=== PATIENT | female | born 1985 | race Caucasian/White ===

== ENCOUNTER 2016-08-15 20:24 | Outpatient (CLI) | payer OTHER ==
[2016-08-15 21:17] LABS: APPEARANCE,URINE CLEAR; BILIRUBIN,URINE NEGATIVE (NEGATIVE); GLUCOSE, URINE NEGATIVE (NEGATIVE); KETONES,URINE 20 mg/dL (NEGATIVE); LEUKOCYTE ESTERASE,URINE NEGATIVE (NEGATIVE); NITRITE,URINE NEGATIVE (NEGATIVE); PROTEIN,URINE NEGATIVE (NEGATIVE); URINE SPECIFIC GRAVITY 1.009; UROBILINOGEN,URINE NEGATIVE mg/dL (<2.0)
[2016-08-15 21:29] LABS: URINE BARBITURATES SCREEN NEGATIVE; URINE METHADONE SCREEN NEGATIVE; URINE OPIATES LOW NEGATIVE; URINE PHENCYCLIDINE SCREEN NEGATIVE
[2016-08-15] MEDS ORDERED: HYDROXYZINE PAMOATE 50 MG CAPSULE PO ONE (22:30)
[2016-08-15] MEDS ORDERED: HYDROXYZINE PAMOATE 50 MG CAPSULE ONE (22:43)
--- NOTE | 2016-08-23 07:27 | Non Stress Test Report ---
Non Stress Test Datetime Report Generated by CPN: 08/23/2016 07:27 DEMOGRAPHIC Test Number: 1 EGA NST: 32.2 INDICATION Indication for Study: Ordered by Provider MONITORING Monitor Explained: Monitor Explained; Test Explained; Patient Verbalized Understanding Time on Monitor: 08/15/2016 20:41 Time off Monitor: 08/15/2016 21:33 NST Duration: 52 NST INTERVENTIONS NST Interventions: PO Hydration; Reposition Patient Physician Notified NST: Dr Joaquin BABY A: [id number] BABY A Movement : Present Contraction Frequency : Irregular FHR Baseline : 130 Accelerations : 15X15 Decelerations : None Variability : Moderate 6-25bpm NST Review: Meets Criteria for Reactive NST NST Review and Verified By : SYDNEY Alvarez Results: Reactive NST REPORT Report Trigger: Send Report
== END 2016-08-15 22:48 | disposition home or self-care (01) ==
LOC: LC 20:24
PROVIDERS: ATTEND Obstetrics & Gynecology
DX: Z34.83 Encounter for supervision of other normal pregnancy, third trimester (principal); Z3A.36 36 weeks gestation of pregnancy
CPT/HCPCS: 59025; 80307; 81001

== ENCOUNTER 2016-09-06 05:51 | Outpatient (CLI) | payer OTHER ==
[2016-09-06 06:40] LABS: APPEARANCE,URINE CLEAR; BILIRUBIN,URINE NEGATIVE (NEGATIVE); GLUCOSE, URINE NEGATIVE (NEGATIVE); KETONES,URINE NEGATIVE (NEGATIVE); LEUKOCYTE ESTERASE,URINE NEGATIVE (NEGATIVE); NITRITE,URINE NEGATIVE (NEGATIVE); PROTEIN,URINE NEGATIVE (NEGATIVE); URINE SPECIFIC GRAVITY 1.002; UROBILINOGEN,URINE NEGATIVE mg/dL (<2.0)
[2016-09-06] MEDS ORDERED: HYDROXYZINE PAMOATE 50 MG CAPSULE ONE (06:50)
[2016-09-06 07:01] LABS: URINE BARBITURATES SCREEN NEGATIVE; URINE METHADONE SCREEN NEGATIVE; URINE OPIATES LOW NEGATIVE; URINE PHENCYCLIDINE SCREEN NEGATIVE
== END 2016-09-06 06:56 | disposition home or self-care (01) ==
LOC: LC 05:51
PROVIDERS: ATTEND Obstetrics & Gynecology
PROC: 4A1HXCZ Monitoring of Products of Conception, Cardiac Rate, External Approach (ICD-10-PCS; principal; 2016-09-06)
DX: O47.03 False labor before 37 completed weeks of gestation, third trimester (principal); Z3A.35 35 weeks gestation of pregnancy
CPT/HCPCS: 59025; 80307; 81001

== ENCOUNTER 2016-09-24 21:59 | Outpatient (CLI) | payer OTHER ==
[2016-09-24 22:59] LABS: APPEARANCE,URINE CLOUDY; BILIRUBIN,URINE NEGATIVE (NEGATIVE); GLUCOSE, URINE NEGATIVE (NEGATIVE); KETONES,URINE NEGATIVE (NEGATIVE); LEUKOCYTE ESTERASE,URINE LARGE (NEGATIVE); NITRITE,URINE NEGATIVE (NEGATIVE); PROTEIN,URINE NEGATIVE (NEGATIVE); URINE SPECIFIC GRAVITY 1.003; UROBILINOGEN,URINE NEGATIVE mg/dL (<2.0)
[2016-09-24 23:21] LABS: URINE BARBITURATES SCREEN NEGATIVE; URINE METHADONE SCREEN NEGATIVE; URINE OPIATES LOW NEGATIVE; URINE PHENCYCLIDINE SCREEN NEGATIVE
[2016-09-25] MEDS ORDERED: RINGERS SOLUTION,LACTATED 1,000 ML IV PRN
--- NOTE | 2016-09-25 01:22 | Non Stress Test Report ---
Non Stress Test Datetime Report Generated by CPN: 09/25/2016 01:22 DEMOGRAPHIC Test Number: 2 EGA NST: 38.0 EGA NST: 35.3 INDICATION Indication for Study: Ordered by Provider Indication for Study: Ordered by Provider MONITORING Monitor Explained: Monitor Explained; Test Explained; Patient Verbalized Understanding Monitor Explained: Monitor Explained; Test Explained; Patient Verbalized Understanding Time on Monitor: 09/24/2016 23:51 Time on Monitor: 09/06/2016 06:05 Time off Monitor: 09/25/2016 00:50 NST Duration: 59 NST INTERVENTIONS NST Interventions: IV Fluids NST Interventions: PO Hydration; Reposition Patient Physician Notified NST: Dr Hopkins Physician Notified NST: Dr. Nuñez BABY A: [id number] BABY A Movement : Present Movement : Present Contraction Frequency : irritability w/ occasional ctx FHR Baseline : 135 Accelerations : 15X15 Accelerations : 15X15 Decelerations : None Variability : Moderate 6-25bpm Variability : Moderate 6-25bpm NST Review: Meets Criteria for Reactive NST NST Review: Meets Criteria for Reactive NST NST Review and Verified By : SYDNEY Feliz NST Results: Reactive NST Results: Reactive NST REPORT Report Trigger: Send Report
== END 2016-09-25 01:05 | disposition home or self-care (01) ==
LOC: LC 21:59
PROVIDERS: ATTEND Obstetrics & Gynecology
PROC: 4A1HXCZ Monitoring of Products of Conception, Cardiac Rate, External Approach (ICD-10-PCS; principal; 2016-09-24)
DX: O47.1 False labor at or after 37 completed weeks of gestation (principal); Z3A.38 38 weeks gestation of pregnancy
CPT/HCPCS: 59025; 80307; 81005

== ENCOUNTER 2016-09-28 11:19 | Outpatient (CLI) | payer OTHER ==
[2016-09-28 12:27] LABS: APPEARANCE,URINE SLIGHTLY-CLOUDY; BILIRUBIN,URINE NEGATIVE (NEGATIVE); GLUCOSE, URINE NEGATIVE (NEGATIVE); KETONES,URINE NEGATIVE (NEGATIVE); LEUKOCYTE ESTERASE,URINE MODERATE (NEGATIVE); NITRITE,URINE NEGATIVE (NEGATIVE); PROTEIN,URINE NEGATIVE (NEGATIVE); URINE SPECIFIC GRAVITY 1.009; UROBILINOGEN,URINE NEGATIVE mg/dL (<2.0)
[2016-09-28 12:33] LABS: URINE BARBITURATES SCREEN NEGATIVE; URINE METHADONE SCREEN NEGATIVE; URINE OPIATES LOW NEGATIVE; URINE PHENCYCLIDINE SCREEN NEGATIVE
--- NOTE | 2016-09-28 12:53 | Non Stress Test Report ---
Non Stress Test Datetime Report Generated by CPN: 09/28/2016 12:53 DEMOGRAPHIC EGA NST: 38.4 INDICATION Indication for Study: Ordered by Provider MONITORING Monitor Explained: Monitor Explained; Test Explained Time on Monitor: 09/28/2016 11:43 Time off Monitor: 09/28/2016 12:30 NST Duration: 47 NST INTERVENTIONS NST Interventions: PO Hydration Physician Notified NST: DR SUYAPA BABY A: [id number] BABY A Movement : Present Contraction Frequency : 10-15 FHR Baseline : 140 Accelerations : 15X15 Decelerations : None Variability : Moderate 6-25bpm NST Review: Meets Criteria for Reactive NST NST Review and Verified By : Dieter Zamarripa RNC NST Results: Reactive NST REPORT Report Trigger: Send Report
== END 2016-09-28 12:55 | disposition home or self-care (01) ==
LOC: LC 11:19
PROVIDERS: ATTEND Obstetrics & Gynecology
PROC: 4A1HXCZ Monitoring of Products of Conception, Cardiac Rate, External Approach (ICD-10-PCS; principal; 2016-09-28)
DX: O14.93 Unspecified pre-eclampsia, third trimester (principal); Z3A.38 38 weeks gestation of pregnancy
CPT/HCPCS: 59025; 80307; 81001; 87086

== ENCOUNTER 2016-10-05 20:30 | Outpatient (CLI) | payer OTHER ==
[2016-10-05 21:17] LABS: APPEARANCE,URINE CLOUDY; BILIRUBIN,URINE NEGATIVE (NEGATIVE); GLUCOSE, URINE NEGATIVE (NEGATIVE); KETONES,URINE NEGATIVE (NEGATIVE); LEUKOCYTE ESTERASE,URINE SMALL (NEGATIVE); NITRITE,URINE NEGATIVE (NEGATIVE); PROTEIN,URINE 30 mg/dL (NEGATIVE); URINE SPECIFIC GRAVITY 1.013; UROBILINOGEN,URINE NEGATIVE mg/dL (<2.0)
[2016-10-05 21:22] LABS: AMNISURE (ROM) NEGATIVE (NEGATIVE)
[2016-10-05 21:35] LABS: URINE BARBITURATES SCREEN NEGATIVE; URINE METHADONE SCREEN NEGATIVE; URINE OPIATES LOW NEGATIVE; URINE PHENCYCLIDINE SCREEN NEGATIVE
== END 2016-10-05 21:35 | disposition home or self-care (01) ==
LOC: LC 20:30
PROVIDERS: ATTEND Obstetrics & Gynecology
PROC: 4A1HXCZ Monitoring of Products of Conception, Cardiac Rate, External Approach (ICD-10-PCS; principal; 2016-10-05)
DX: O12.03 Gestational edema, third trimester (principal); O47.1 False labor at or after 37 completed weeks of gestation; Z3A.39 39 weeks gestation of pregnancy
CPT/HCPCS: 59025; 80307; 81005; 84112

== ENCOUNTER 2016-10-06 00:04 | Inpatient (IN) | payer OTHER ==
[2016-10-06 01:11] LABS: APPEARANCE,URINE CLEAR; BILIRUBIN,URINE NEGATIVE (NEGATIVE); GLUCOSE, URINE NEGATIVE (NEGATIVE); KETONES,URINE NEGATIVE (NEGATIVE); LEUKOCYTE ESTERASE,URINE NEGATIVE (NEGATIVE); NITRITE,URINE NEGATIVE (NEGATIVE); PROTEIN,URINE NEGATIVE (NEGATIVE); URINE SPECIFIC GRAVITY 1.009; UROBILINOGEN,URINE NEGATIVE mg/dL (<2.0)
[2016-10-06] MEDS ORDERED: RINGERS SOLUTION,LACTATED 1,000 ML IV ONE (01:46)
[2016-10-06] MEDS ORDERED: RINGERS SOLUTION,LACTATED 1,000 ML IV PRN (01:46)
[2016-10-06 01:50] LABS: URINE BARBITURATES SCREEN NEGATIVE; URINE METHADONE SCREEN NEGATIVE; URINE OPIATES LOW NEGATIVE; URINE PHENCYCLIDINE SCREEN NEGATIVE
[2016-10-06] MEDS ORDERED: NALBUPHINE HCL INJ 10 MG/1 ML AMPULE INJ ONE (02:12)
[2016-10-06] MEDS ORDERED: PROMETHAZINE HCL INJ 25 MG/1 ML VIAL IV ONE (02:12)
[2016-10-06 02:13] LABS: HEMATOCRIT 32.2 % (36.0-47.0); HEMOGLOBIN 10.5 g/dL (12.0-15.5); HGB HCT DIFFERENCE -0.7; MEAN CORPUSCULAR HGB CONC 32.6 g/dL (32.0-36.0); MEAN CORPUSCULAR VOLUME 86 fl (80-97); RED BLOOD COUNT 3.76 10^6/uL (3.72-5.28); RED CELL DISTRIBUTION WIDTH 14.7 % (11.5-14.0); WHITE BLOOD COUNT 21.2 10^3/uL (4.0-10.5)
[2016-10-06] MEDS ORDERED: PROMETHAZINE HCL INJ 25 MG/1 ML VIAL ONE (02:16)
[2016-10-06] MEDS ORDERED: NALBUPHINE HCL INJ 10 MG/1 ML AMPULE ONE (02:16)
[2016-10-06 02:34] LABS: BASOPHILS % (MANUAL) 0 % (0-2); EOSINOPHILS % (MANUAL) 0 % (0-6); LYMPHOCYTES % (MANUAL) 15 % (13-45); TOTAL CELLS COUNTED 100
[2016-10-06 02:35] LABS: ANISOCYTOSIS 1+; TOXIC GRANULATION 1+; TOXIC VACUOLATION PRESENT
[2016-10-06 02:36] LABS: POLYCHROMASIA SLIGHT
[2016-10-06] MEDS ORDERED: OXYTOCIN/NORMAL SALINE 20 UNIT/1,000 ML RTUINJ ONE (03:25)
[2016-10-06] MEDS ORDERED: MISOPROSTOL 0.2 MG TABLET ONE (03:25)
[2016-10-06] MEDS ORDERED: LIDOCAINE 1% INJ-PF (10 MG/ML) 30 ML SDV ONE (03:25)
[2016-10-06] MEDS ORDERED: IBUPROFEN 800 MG TABLET ONE (05:14)
[2016-10-06] MEDS ORDERED: BENZOCAINE/MENTHOL AEROSOL SPRAY 56 ML TOP PRN (05:53)
[2016-10-06] MEDS ORDERED: ZOLPIDEM TARTRATE 5 MG TABLET PO PRN (05:53)
[2016-10-06] MEDS ORDERED: DIBUCAINE 1% OINTMENT 28 GM TP PRN (05:53)
[2016-10-06] MEDS ORDERED: MEASLES,MUMPS&RUBELLA VACC/PF 0.5 ML VIAL SUBCUT PRN (05:53)
[2016-10-06] MEDS ORDERED: DIPH/PERTUSS(ACELL)/TETANUS VAC/PF 0.5 ML SYR (>=10YO) IM PRN (05:53)
[2016-10-06] MEDS ORDERED: ACETAMINOPHEN WITH CODEINE #3 TABLET PO PRN (05:53)
--- NOTE | 2016-10-06 06:13 | Admission Physical ---
Datetime Report Generated by CPN: 10/06/2016 06:13 CURRENT ADMISSION Chief Complaint: Uterine Contractions Indication for Induction: Not Applicable Admit Plan: Admit to Unit; Initiate Labor Protocol ALLERGIES Medication Allergies: No Medication Allergies: No Known Allergies (09/28/2016) Medication Allergies: No Known Allergies (09/06/2016) Medication Allergies: No Known Allergies (08/15/2016) Medication Allergies: No Known Allergies (02/24/2016) Medication Allergies: No Known Allergies (10/07/2014) Medication Allergies: No Known Allergies (03/12/2012) Latex: No Latex Allergies Food Allergies: none Environmental Allergies: none OBSTETRICAL HISTORY EDC: 10/08/2016 00:00 : 7 Para: 3 Term: 3 : 0 SAB: 1 IAB: 1 Ectopic: 1 Livin Cesareans: 0 VBACs: 0 Multiple Births: 0 Gestational Diabetes: No Rh Sensitization: No Incompetent Cervix: No ELIAS: No Infertility: No ART Treatment: No Uterine Anomaly: No IUGR: No Hx Previous C/S: No Macrosomia: No Hx Loss/Stillborn: No PIH: No Hx : No Placenta Previa/Abruption: No Depression/PP Depression: Yes PTL/PROM: No Post Hemorrhage: No Current Procedures: Ultrasound; NST Obstetrical History Comments: G1: 2003 SAB G2: 2005 Male 7 lbs 12 ounces G3: 2006 Male 6 lbs 12 ounces G4: 2012 Female 8 lbs 9 ounces, PPD treated with meds G5: 2014 Ectopic/SAB G6: 2015 IAB G7: Current SEE RECORDS Alcohol: No Marijuana : No Cocaine: No Other Illicit Drugs: No Cigarettes: Current Everyday Smoker. [id number] Cigarettes: Current Everyday Smoker. [id number] Cigarette Frequency: 5 - 10 per day Advised to Stop: Yes Cigarette Comments: 1/2 PPD MEDICAL HISTORY Diabetes: No Blood Transfusion: No Pulmonary Disease (Asthma, TB): Yes Breast Disease: No Hypertension: No Sweatband Flanger Surgery: No Heart Disease: No Hosp/Surgery: Yes Autoimmune Disorder: No Anesthetic Complications: No Kidney Disease: No Abnormal Pap Smear: No Neuro/Epilepsy: Yes Psychiatric Disorders: Yes Other Medical Diseases: No Hepatitis/Liver Disease: No Significant Family History: No Varicosities/Phlebitis: No Trauma/Violence : No Thyroid Dysfunction: No Medical History Comments: childbirth, asthma (no resuce inhaler- exercise induced), anxiety, TBI x2 INFECTIOUS HISTORY Gonorrhea: No Genital Herpes: Yes Chlamydia: No Tuberculosis: No Syphilis: No Hepatitis: No HIV/AIDS Exposure: No Rash or Viral Illness: No HPV: 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 PHYSICAL EXAM General: Normal HEENT: Normal Neurologic: Normal Thyroid: Deferred Heart: Normal Lungs: Normal Breast: Deferred Back: Normal Abdomen: Normal Genitourinary Exam: Normal Extremities: Normal DTRs: Normal Pelvic Type: Adequate Vital Signs: Reviewed; Within Normal Limits VAGINAL EXAM Dilatation: 3 Effacement: 70 Station: -2 MEMBRANES Membranes: Intact FETUS A EGA: 39.5 Monitoring: External US FHR- Baseline: 140 Variability: Moderate 6-25bpm Accelerations: 15X15 Decelerations: None FHR Category: Category I PLANS FOR LABOR AND DELIVERY Labor and Delivery: None Pain Management: Epidural Feeding Preference: Breast Benefit of Breast Feed Discussed: Yes Circumcision: Yes INFORMED CONSENT Signature: with User ID: [email or web address]
--- NOTE | 2016-10-06 06:31 | Delivery Summary ---
Del Sum A-C Datetime Report Generated by CPN: 10/06/2016 06:30 DELIVERY PERSONNEL DELIVERY PERSONNEL: [id number] Delivery Doctor:: Jose Bingham DO Labor and Delivery Nurse:: Margot Zhang RNair brake adjuster Nurse:: Adwoa Baldwin RN Art Objects Salesperson/CARE GIVER: Sofi Barber, ST MATERNAL INFORMATION Delivery Anesthesia: None Medications After Delivery: Pitocin Drip 20 Units/1000ml NSS Estimated Blood Loss (ml): 200 Maternal Complications: None Provider Comments: of viable male infant delievered in OA position Placenta delievered spontaneous and intact with 3v cord Fundus firm LABOR SUMMARY EDC: 10/08/2016 00:00 No. Babies in Womb: 1 Attempted: No Labor Anesthesia: IV Sedation LABOR INFORMATION Reason for Induction: Not Applicable Onset of Labor: 10/06/2016 03:03 Complete Dilatation: 10/06/2016 03:57 Oxytocin: N/A Group B Beta Strep: negative Antibiotics # of Doses: 0 Antibiotics Time of Last Dose: N/A Name of Antibiotic Given: N/A Steroids Given: None Reason Steroids Not Administered: Not Applicable MEMBRANES Rupture of Membranes: Membranes did not rupture during pt. stay in Labor and Delivery, pt. is not sure when her membranes ruptured. Amniotic Fluid Color: Clear STAGES OF LABOR Stage 1 hr: 0 Stage 1 min: 54 Stage 2 hr: 0 Stage 2 min: 0 Stage 3 hr: 0 Stage 3 min: 3 Total Time in Labor hr: 0 Total Time in Labor min: 57 VAGINAL DELIVERY Episiotomy: None Laceration Extension: N/A Other Laceration: right labial Laceration Repair: Yes Laceration Repair Note: Right labial laceration repaired with 3-0 chromic in usual fashion with good hemostasis Sponge Count Correct: N/A Sharps Count Correct: Yes CSECTION DELIVERY Primary Indication: N/A Secondary Indication: N/A CSection Incidence: N/A Labor: N/A Elective: N/A CSection Incision: N/A BABY A INFORMATION Infant Delivery Date/Time: 10/06/2016 03:57 Method of Delivery: Vaginal Born in Route : No : N/A Forceps: N/A Vacuum Extraction: N/A Shoulder Dystocia : No PRESENTATION/POSITION BABY A Presentation: Cephalic Cephalic Presentation: Vertex Vertex Position: Left Occipital Anterior Breech Presentation: N/A PLACENTA INFORMATION BABY A Placenta Delivery Time : 10/06/2016 04:00 Placenta Method of Delivery: Spontaneous Placenta Status: Delivered SCORES BABY A Heart Rate 1 min: >100 bpm Resp Effort 1 min: Good Cry Reflex Irritability 1 min: Cough or Sneeze or Pulls Away Muscle Tone 1 min: Active Motion Color 1 min: Body [place], Extremities Blue Resuscitation Effort 1 min: Tactile Stimulation SCORE 1 MIN: 9 Heart Rate 5 min: >100 bpm Resp Effort 5 min: Good Cry Reflex Irritability 5 min: Cough or Sneeze or Pulls Away Muscle Tone 5 min: Active Motion Color 5 min: Body [place], Extremities Blue Resuscitation Effort 5 min: Tactile Stimulation SCORE 5 MIN: 9 INFANT INFORMATION BABY A Gestational Age at Delivery: 39.5 Gestational Status: Full Term- 39- 40.6 Weeks Infant Outcome : Liveborn Condition : Stable Sex: Male IDENTIFICATION BABY A Verification Date/Time: 10/06/2016 04:06 ID Band Number: [id number] Mother's Name Verified: Yes RN Verifying : S. Lattibgirishudeir, RN _ C. [place], RN WEIGHT/LENGTH BABY A Infant Birthweight (gm): 2870 Weight (lb): 6 Infant Weight (oz): 5 Length (in): 19.00 Infant Length (cm): 48.26 CORD INFORMATION BABY A No. Cord Vessels: 3 Nuchal Cord : N/A Cord Blood Taken: Yes-For Storage (Mom's Blood type +) Suction: Mouth; Nose ASSESSMENT BABY A Infant Complications: None Physical Findings at Delivery: Within Normal Limits Skin to Skin: Yes Skin to Skin Time (min): 60 BABY B INFORMATION : N/A SIGNATURES Signature: with User ID: [email or web address]
[2016-10-06] MEDS: IBUPROFEN 800 MG TABLET PO SCH ×3 (06:59→22:07)
[2016-10-06] MEDS: SENNOSIDES/DOCUSATE 8.6-50 MG 1 EACH TABLET PO SCH (09:22)
[2016-10-06] MEDS: DOCUSATE SODIUM 100 MG CAPSULE PO SCH ×2 (09:22→18:07)
[2016-10-06] MEDS: PRENATAL VITAMIN W-O CA NO5/FE FUMARATE/FA CAPSULE PO SCH (09:23)
[2016-10-06] MEDS: FERROUS SULFATE 325 MG TABLET PO SCH ×2 (09:40→18:08)
[2016-10-06] MEDS: ACETAMINOPHEN WITH CODEINE #3 TABLET PO PRN (14:01)
--- NOTE | 2016-10-06 16:26 | PDOC PROGRESS REPORT ---
Subjective-OB Subjective: Post Delivery Day: 31 year old G7 now P4 s/p this am. Denies any needs at this time Physical Exam (OB) Vital Signs: Temp Pulse Resp BP Pulse Ox 98.4 F 71 16 109/46 L 97 10/06/16 07:42 10/06/16 07:42 10/06/16 07:42 10/06/16 07:42 10/06/16 07:42 Intake & Output 10/05/16 10/06/16 10/07/16 06:59 06:59 06:59 Intake Total 350 Balance 350 Weight 74.45 kg - General General Appearance: Appears well In distress: None - Episiotomy/Laceration Site Condition: Well Approximated, Edematous - Lochia Lochia Amount: Small 10-25 ml Lochia Color: Rubra/Red - Abdomen Description: Soft Hernia Present: No Fundal Description: Firm, Midline Fundal Height: u/u - u/2 - Respiratory Respiratory Status: No respiratory distress - Extremities Upper extremity: Normal inspection Lower extremities: Normal inspection - Psychological Associated symptoms: Normal affect, Normal mood Objective-Diagnostic Laboratory: 10/06/16 01:53 10/06/16 10/06/16 10/06/16 00:20 01:53 01:53 WBC 21.2 H RBC 3.76 Hgb 10.5 L Hct 32.2 L MCV 86 MCH 28.0 MCHC 32.6 RDW 14.7 H Plt Count 201 Seg Neutrophils % Not Reportable Lymphocytes % Not Reportable Monocytes % Not Reportable Eosinophils % Not Reportable Basophils % Not Reportable Absolute Neutrophils Not Reportable Absolute Lymphocytes Not Reportable Absolute Monocytes Not Reportable Absolute Eosinophils Not Reportable Absolute Basophils Not Reportable Urine Color YELLOW Urine Appearance CLEAR Urine pH 7.0 Ur Specific [place] 1.009 Urine Protein NEGATIVE Urine Glucose (UA) NEGATIVE Urine Ketones NEGATIVE Urine Blood NEGATIVE Urine Nitrite NEGATIVE Ur Leukocyte Esterase NEGATIVE Blood Type B POSITIVE Antibody Screen NEGATIVE Assessment and Plan(PN) - Assessment and Plan (1) Vaginal delivery Is this a current diagnosis for this admission?: YesPlan: continue stay (2) Acute blood loss anemia Is this a current diagnosis for this admission?: YesPlan: increase dietary iron and po feso4 - Time Spent with Patient Time with patient: 15-25 minutes Medications reviewed and adjusted accordingly: Yes - Disposition Anticipated Discharge: Home Within: within 48 hours
[2016-10-07] MEDS: IBUPROFEN 800 MG TABLET PO SCH ×3 (06:17→21:48)
[2016-10-07 08:21] LABS: HEMATOCRIT 28.5 % (36.0-47.0); HEMOGLOBIN 9.1 g/dL (12.0-15.5); HGB HCT DIFFERENCE -1.2; MEAN CORPUSCULAR HEMOGLOBIN 27.7 pg (27.0-33.4); MEAN CORPUSCULAR HGB CONC 31.9 g/dL (32.0-36.0); MEAN CORPUSCULAR VOLUME 87 fl (80-97); RED BLOOD COUNT 3.27 10^6/uL (3.72-5.28); RED CELL DISTRIBUTION WIDTH 14.6 % (11.5-14.0); WHITE BLOOD COUNT 14.5 10^3/uL (4.0-10.5)
--- NOTE | 2016-10-07 09:58 | PDOC PROGRESS REPORT ---
Subjective-OB Subjective: Post Delivery Day: 1 31 year old. Denies any needs at this time, states lochia is stable, voiding without difficulty, pain well controlled. Physical Exam (OB) Vital Signs: Temp Pulse Resp BP Pulse Ox 97.8 F 79 16 122/75 100 10/07/16 08:50 10/07/16 08:50 10/07/16 08:50 10/07/16 08:50 10/07/16 08:50 Intake & Output 10/06/16 10/07/16 10/08/16 06:59 06:59 06:59 Intake Total 350 Balance 350 Weight 74.45 kg - Lochia Lochia Amount: Scant < 10 ml Lochia Color: Rubra/Red - Abdomen Description: Tender, Soft Hernia Present: No Fundal Description: Firm, Midline Fundal Height: u/u - u/2 Objective-Diagnostic Laboratory: 10/07/16 08:05 10/07/16 08:05 WBC 14.5 H RBC 3.27 L Hgb 9.1 L Hct 28.5 L MCV 87 MCH 27.7 MCHC 31.9 L RDW 14.6 H Plt Count 208 Assessment and Plan(PN) - Assessment and Plan (1) Acute blood loss anemia Is this a current diagnosis for this admission?: YesPlan: ferrous sulfate increase dietary iron (2) Vaginal delivery Is this a current diagnosis for this admission?: YesPlan: routine care - Time Spent with Patient Time with patient: Less than 15 minutes Critical Time spent with patient: Less than 15 minutes Medications reviewed and adjusted accordingly: Yes - Disposition Anticipated Discharge: Home
[2016-10-07] MEDS: FERROUS SULFATE 325 MG TABLET PO SCH ×2 (10:44→17:45)
[2016-10-07] MEDS: PRENATAL VITAMIN W-O CA NO5/FE FUMARATE/FA CAPSULE PO SCH (10:44)
[2016-10-07] MEDS: SENNOSIDES/DOCUSATE 8.6-50 MG 1 EACH TABLET PO SCH (10:44)
[2016-10-07] MEDS: DOCUSATE SODIUM 100 MG CAPSULE PO SCH ×2 (10:44→17:45)
[2016-10-07] MEDS: ACETAMINOPHEN WITH CODEINE #3 TABLET PO PRN (11:14)
[2016-10-08] MEDS: IBUPROFEN 800 MG TABLET PO SCH (06:01)
[2016-10-08 08:45] VITALS: BP 114/63
[2016-10-08] MEDS: FERROUS SULFATE 325 MG TABLET PO SCH (09:22)
[2016-10-08] MEDS: SENNOSIDES/DOCUSATE 8.6-50 MG 1 EACH TABLET PO SCH (09:22)
[2016-10-08] MEDS: PRENATAL VITAMIN W-O CA NO5/FE FUMARATE/FA CAPSULE PO SCH (09:22)
[2016-10-08] MEDS: DOCUSATE SODIUM 100 MG CAPSULE PO SCH (09:22)
--- NOTE | 2016-10-08 09:28 | PDOC DISCHARGE SUMMARY ---
Final Diagnosis Discharge Date: 10/08/16 - Final Diagnosis (1) Acute blood loss anemia Is this a current diagnosis for this admission?: Yes (2) Vaginal delivery Is this a current diagnosis for this admission?: Yes Discharge Data - Discharge Medication Home Medications: Pediatric Multivit Comb No.42 [Flintstones] 2 each PO DAILY 08/15/16 Valacyclovir HCl [Valtrex 500 mg Tablet] 1 tab PO DAILY 09/24/16 Acetaminophen with Codeine [Tylenol #3 Tablet] 2 each PO Q4HP PRN #14 tablet 04/26 Docusate Sodium [Colace 100 mg Capsule] 100 mg PO BID #60 capsule 10/08/16 Ibuprofen [Motrin 800 mg Tablet] 800 mg PO Q8 #60 tablet 10/08/16 Gestational Age: 39.5 Reason(s) for Admission: Onset of Labor Procedures: NST Intrapartum Procedure(s): Spontaneous Vaginal Delivery - Data Baby 1 Male at 1 minute: 9 at 5 minutes: 9 Weight: 2870 kg Home with Mother: Yes Complications: No - Diagnosis Test Laboratory: Temp Pulse Resp BP Pulse Ox 98.1 F 71 16 114/63 99 10/08/16 08:31 10/08/16 08:31 10/08/16 08:31 10/08/16 08:31 10/08/16 08:31 10/06/16 10/06/16 10/07/16 00:20 01:53 08:05 RBC 3.76 3.27 L Hgb 10.5 L 9.1 L Hct 32.2 L 28.5 L Urine Opiates Screen NEGATIVE - Discharge information/Instructions Discharge Activity: Activity As Tolerated, Pelvic Rest, No tub bath Discharge Diet: Regular Disposition: HOME, SELF-CARE Follow up with: [facility] in: 4, Weeks
== END 2016-10-08 13:55 | disposition home or self-care (01) | DRG 774 ==
LOC: LC 00:04 → LR 01:31 → 2S 06:11
PROVIDERS: ADMIT Obstetrics & Gynecology; ATTEND Obstetrics & Gynecology
PROC: 10E0XZZ Delivery of Products of Conception, External Approach (ICD-10-PCS; principal; 2016-10-06)
PROC: 0UQMXZZ Repair Vulva, External Approach (ICD-10-PCS; 2016-10-06)
DX: O99.334 Smoking (tobacco) complicating childbirth (principal); O98.32 Other infections with a predominantly sexual mode of transmission complicating childbirth; F17.210 Nicotine dependence, cigarettes, uncomplicated; O62.3 Precipitate labor; O70.0 First degree perineal laceration during delivery; A60.00 Herpesviral infection of urogenital system, unspecified; Z3A.39 39 weeks gestation of pregnancy; Z37.0 Single live birth
CPT/HCPCS: 36415; 80307; 81005; 85025; 85027; 86592; 86850; 86900; 86901; J2300; J2550; J2590; J3490

== ENCOUNTER 2016-10-18 16:36 | Emergency (ER) | payer OTHER ==
[2016-10-18 16:43] VITALS: BP 115/71
--- NOTE | 2016-10-18 18:03 | ER Document Report ---
ED Medical Screen (RME) - General Chief Complaint: Abdominal Cramping Stated Complaint: ABDOMINAL PAIN Time Seen by Provider: 10/18/16 17:39 Mode of Arrival: Ambulatory Information source: Patient TRAVEL OUTSIDE OF THE [place] IN LAST 30 DAYS: No - HPI Onset: Last week Onset/Duration: Gradual, Constant Quality of pain: Dull Associated Symptoms: None Exacerbated by: Denies Relieved by: Denies Notes: 10/18/16 18:01 Patient is a 31-year-old female who is approximately 10 days from a normal spontaneous vaginal delivery. Patient has had approximately 1 week of worsening epigastric discomfort. No nausea or vomiting. Her vaginal bleeding is much improved since hospital discharge. No fevers or chills. Patient called her [employer] doctor today and was told to go to the emergency department. Patient does not have a prior history of gallbladder problems and has had no prior abdominal surgeries. No fevers - Related Data Allergies/Adverse Reactions: No Known Allergies Allergy (Verified 09/28/16 11:50) Past Medical History - General Information source: Patient, [facility] Records - Social History Chew tobacco use (# tins/day): No Frequency of alcohol use: None Drug Abuse: None Pulmonary Medical History: Reports: Hx Pneumonia Denies: Hx Asthma, Hx Bronchitis, Hx COPD, Hx Tuberculosis Endocrine Medical History: Reports: Hx Diabetes Mellitus Type 1 - diet controlled Renal/ Medical History: Denies: Hx Peritoneal Dialysis Psychiatric Medical History: Reports: Hx Depression - Immunizations Immunizations up to date: Yes Hx Diphtheria, Pertussis, Tetanus Vaccination: Yes - given today Review of Systems - Review of Systems Gastrointestinal: Abdominal pain. denies: Diarrhea, Vomiting Physical Exam - Vital signs Vitals: Temp Pulse Resp BP Pulse Ox 98.2 F 97 17 115/71 97 10/18/16 16:40 10/18/16 16:40 10/18/16 16:40 10/18/16 16:40 10/18/16 16:40 Interpretation: Normal - General General appearance: Appears well, Alert - HEENT Head: Normocephalic, Atraumatic Eyes: Normal Pupils: PERRL - Respiratory Respiratory status: No respiratory distress Chest status: Nontender Breath sounds: Normal Chest palpation: Normal - Cardiovascular Rhythm: Regular Heart sounds: Normal auscultation Murmur: No - Abdominal Inspection: Normal Distension: No distension Bowel sounds: Normal Tenderness: Tender - Epigastric Organomegaly: No organomegaly Notes: No tenderness over the uterus. - Back Back: Normal, Nontender - Extremities General upper extremity: Normal inspection, Nontender, Normal color, Normal ROM , Normal temperature General lower extremity: Normal inspection, Nontender, Normal color, Normal ROM , Normal temperature, Normal weight bearing. No: Cezar's sign - Neurological Neuro grossly intact: Yes Cognition: Normal Orientation: AAOx4 Wood Coma Scale Eye Opening: Spontaneous [place] Coma Scale Verbal: Oriented Santi Coma Scale Motor: Obeys Commands Santi Coma Scale Total: 15 Speech: Normal Motor strength normal: LUE, RUE, LLE, RLE Sensory: Normal - Psychological Associated symptoms: Normal affect, Normal mood - Skin Skin Temperature: Warm Skin Moisture: Dry Skin Color: Normal Course - Re-evaluation Re-evalutation: 10/18/16 18:35 Labs and urine are all negative. There is some blood in the urine however this is likely in etiology. Will get noncontrast abdominal CT to rule out kidney stones or other pathology which may explain her symptoms. Patient has declined any pain medication. 10/18/16 19:41 CT abdomen pelvis results reviewed. Labs negative. Results discussed with patient. Will discharge home with [employer] follow-up. - Vital Signs Vital signs: Temp Pulse Resp BP Pulse Ox 98.2 F 97 17 115/71 97 10/18/16 16:40 10/18/16 16:40 10/18/16 16:40 10/18/16 16:40 10/18/16 16:40 - Laboratory Result Diagrams: 10/18/16 17:50 10/18/16 17:50 Laboratory results interpreted by me: 10/18/16 10/18/16 17:50 17:50 RDW 15.5 H Urine Blood LARGE H Ur Leukocyte Esterase SMALL H - Diagnostic Test Radiology reviewed: Reports reviewed Radiology results interpreted by me: 10/18/16 19:40 CT abdomen pelvis: Negative per radiologist Doctor's Discharge - Discharge Clinical Impression: Abdominal pain Condition: Good Disposition: HOME, SELF-CARE Instructions: Abdominal Pain ([facility]) Additional Instructions: Follow-up with your [employer] doctor. Return to the emergency department if worse or for any other problems. Prescriptions: Hydrocodone/Acetaminophen [[place] 5-325 mg Tablet] 1 tab PO QID PRN #20 tablet PRN Reason: Mild Pain
[2016-10-18 18:15] LABS: APPEARANCE,URINE SLIGHTLY-CLOUDY; BILIRUBIN,URINE NEGATIVE (NEGATIVE); GLUCOSE, URINE NEGATIVE (NEGATIVE); KETONES,URINE NEGATIVE (NEGATIVE); LEUKOCYTE ESTERASE,URINE SMALL (NEGATIVE); NITRITE,URINE NEGATIVE (NEGATIVE); PROTEIN,URINE NEGATIVE (NEGATIVE); URINE SPECIFIC GRAVITY 1.023; UROBILINOGEN,URINE NEGATIVE mg/dL (<2.0)
[2016-10-18 18:21] LABS: ABSOLUTE EOSINOPHILS # (AUTO) 0.1 10^3/uL (0.0-0.6); ABSOLUTE LYMPHOCYTES (AUTO) 2.4 10^3/uL (0.5-4.7); ABSOLUTE MONOCYTES (AUTO) 0.6 10^3/uL (0.1-1.4); ABSOLUTE NEUT (AUTO) 4.4 10^3/uL (1.7-8.2); BASOPHILS % (AUTO) 0.6 % (0-2); EOSINOPHILS % (AUTO) 1.7 % (0-6); HEMATOCRIT 38.3 % (36.0-47.0); HEMOGLOBIN 12.5 g/dL (12.0-15.5); HGB HCT DIFFERENCE -0.8; LYMPHOCYTES % (AUTO) 31.5 % (13-45); MEAN CORPUSCULAR HGB CONC 32.6 g/dL (32.0-36.0); MEAN CORPUSCULAR VOLUME 86 fl (80-97); RED BLOOD COUNT 4.46 10^6/uL (3.72-5.28); RED CELL DISTRIBUTION WIDTH 15.5 % (11.5-14.0); SEGMENTED NEUTROPHILS % (AUTO) 58.2 % (42-78); WHITE BLOOD COUNT 7.6 10^3/uL (4.0-10.5)
[2016-10-18 18:32] LABS: ALANINE AMINOTRANSFERASE 25 U/L (9-52); ALBUMIN 4.1 g/dL (3.5-5.0); ALKALINE PHOSPHATASE 107 U/L (38-126); ANION GAP 10 (5-19); ASPARTATE AMINO TRANSFERASE 19 U/L (14-36); BILIRUBIN,DIRECT 0.3 mg/dL (0.0-0.4); BILIRUBIN,TOTAL 0.5 mg/dL (0.2-1.3); BLOOD UREA NITROGEN 12 mg/dL (7-20); CALCIUM 9.6 mg/dL (8.4-10.2); CARBON DIOXIDE 25 mmol/L (22-30); CHLORIDE 105 mmol/L (98-107); CREATININE RESULT 0.66 mg/dL (0.52-1.25); GLUCOSE 83 mg/dL (75-110); LIPASE 130.2 U/L (23-300); POTASSIUM 4.3 mmol/L (3.6-5.0); SODIUM 140.4 mmol/L (137-145); TOTAL PROTEIN 7.9 g/dL (6.3-8.2)
--- NOTE | 2016-10-18 19:34 | RADIOLOGY REPORT (SQ) ---
EXAM DESCRIPTION: CT ABD/PELVIS NO ORAL OR IV COMPLETED DATE/TIME: 10/18/2016 7:18 pm REASON FOR STUDY: abd pain COMPARISON: None. TECHNIQUE: CT scan of the abdomen and pelvis performed without intravenous or oral contrast. Images reviewed with lung, soft tissue, and bone windows. Reconstructed coronal and sagittal MPR images revi ewed. All images stored on PACS. All CT scanners at this facility use dose modulation, iterative reconstruction, and/or weight based d osing when appropriate to reduce radiation dose to as low as reasonably achievable (ALARA). [facility]: Dose Right [facility]: CareDose [facility]: Dose Right [facility]: Teradose 4D [facility]: Smart GuideIT RADIATION DOSE: Up-to-date CT equipment and radiation dose reduction techniques were employed. CTDIv ol: 5.4 mGy. DLP: 290 mGy-cm.mGy. LIMITATIONS: None. FINDINGS: LOWER CHEST: No significant findings. No nodules or infiltrates. NON-CONTRASTED LIVER, SPLEEN, ADRENALS: Evaluation limited by lack of IV contrast. No identified sign ificant masses. PANCREAS: No masses. No peripancreatic inflammatory changes. GALLBLADDER: No identified stones by CT criteria. No inflammatory changes to suggest cholecystitis. RIGHT KIDNEY AND URETER: No suspicious masses. Assessment limited by lack of IV contrast. No signif icant calcifications. No hydronephrosis or hydroureter. LEFT KIDNEY AND URETER: No suspicious masses. Assessment limited by lack of IV contrast. No signifi cant calcifications. No hydronephrosis or hydroureter. AORTA AND RETROPERITONEUM: No aneurysm. No retroperitoneal masses or adenopathy. BOWEL AND PERITONEAL CAVITY: No obvious masses or inflammatory changes. No free fluid. APPENDIX: Normal. PELVIS, BLADDER, AND ABDOMINAL WALL:No abnormal masses. No free fluid. Bladder normal. BONES: No significant findings. OTHER: No other significant finding. IMPRESSION: NO SIGNIFICANT OR ACUTE PROCESS IN THE ABDOMEN OR PELVIS. TECHNICAL DOCUMENTATION: JOB ID: [id number] Quality ID # [id number]: Final reports with documentation of one or more dose reduction techniques (e.g., Au tomated exposure control, adjustment of the mA and/or kV according to patient size, use of iterative reconstruction technique) 2010 [employer]- All Rights Reserved
== END 2016-10-18 19:57 | disposition home or self-care (01) ==
LOC: ER 16:36
DX: O90.9 Complication of the puerperium, unspecified (principal); R10.9 Unspecified abdominal pain; E10.9 Type 1 diabetes mellitus without complications
CPT/HCPCS: 36415; 74176; 80053; 81001; 83690; 85025; 99284

== ENCOUNTER 2017-03-14 11:35 | Emergency (ER) | payer OTHER ==
[2017-03-14] MEDS ORDERED: NORMAL SALINE 1000 ML 1,000 ML IV ONE (12:54)
[2017-03-14 13:41] LABS: ABSOLUTE BASOPHILS # (AUTO) 0.1 10^3/uL (0.0-0.2); ABSOLUTE MONOCYTES (AUTO) 0.6 10^3/uL (0.1-1.4); ABSOLUTE NEUT (AUTO) 8.5 10^3/uL (1.7-8.2); BASOPHILS % (AUTO) 0.6 % (0-2); EOSINOPHILS % (AUTO) 0.3 % (0-6); HEMATOCRIT 40.9 % (36.0-47.0); HEMOGLOBIN 13.8 g/dL (12.0-15.5); HGB HCT DIFFERENCE 0.5; LYMPHOCYTES % (AUTO) 17.6 % (13-45); MEAN CORPUSCULAR HEMOGLOBIN 29.2 pg (27.0-33.4); MEAN CORPUSCULAR HGB CONC 33.8 g/dL (32.0-36.0); MEAN CORPUSCULAR VOLUME 87 fl (80-97); MONOCYTES % (AUTO) 5.5 % (3-13); RED BLOOD COUNT 4.72 10^6/uL (3.72-5.28); RED CELL DISTRIBUTION WIDTH 14.9 % (11.5-14.0); WHITE BLOOD COUNT 11.1 10^3/uL (4.0-10.5)
[2017-03-14 13:50] LABS: PROTHROMBIN TIME 12.5 SEC (11.4-15.4)
[2017-03-14 13:51] LABS: PARTIAL THROMBOPLASTIN TIME 27.2 SEC (23.5-35.8)
[2017-03-14 14:12] LABS: ALANINE AMINOTRANSFERASE 19 U/L (9-52); ALBUMIN 4.4 g/dL (3.5-5.0); ALKALINE PHOSPHATASE 70 U/L (38-126); ANION GAP 13 (5-19); ASPARTATE AMINO TRANSFERASE 15 U/L (14-36); BILIRUBIN,DIRECT 0.3 mg/dL (0.0-0.4); BILIRUBIN,TOTAL 0.4 mg/dL (0.2-1.3); BLOOD UREA NITROGEN 6 mg/dL (7-20); CALCIUM 9.5 mg/dL (8.4-10.2); CARBON DIOXIDE 24 mmol/L (22-30); CHLORIDE 104 mmol/L (98-107); CREATININE RESULT 0.63 mg/dL (0.52-1.25); GLUCOSE 70 mg/dL (75-110); LIPASE 116.9 U/L (23-300); POTASSIUM 3.8 mmol/L (3.6-5.0); SODIUM 141.2 mmol/L (137-145); TOTAL PROTEIN 7.6 g/dL (6.3-8.2)
--- NOTE | 2017-03-14 15:00 | ER Document Report ---
ED General - General Chief Complaint: Abdominal Pain Stated Complaint: ETOPIC Time Seen by Provider: 03/14/17 12:53 TRAVEL OUTSIDE OF THE [place] IN LAST 30 DAYS: No - HPI Patient complains to provider of: Left lower quadrant abdominal pain Notes: Patient coming in for evaluation of lower quadrant abdominal pain. Patient was seen at local ENVIR[facility]GRAMS MANAGER's office and she will performed showing a cyst on left ovary concern about possible ectopic requesting a quant be performed here in the ER. Upon my evaluation patient was to be no obvious distress. Patient states history of ectopic in the past also history of miscarriages. Patient is approximately a g8. Patient denies any chest pain shortness of breath fevers chills nausea vomiting vaginal bleeding syncope at this time. - Related Data Allergies/Adverse Reactions: No Known Allergies Allergy (Verified 03/14/17 11:36) Past Medical History - Social History Smoking Status: Current Every Day Smoker Chew tobacco use (# tins/day): No Frequency of alcohol use: Occasional Drug Abuse: None Family History: Reviewed & Not Pertinent Patient has suicidal ideation: No Patient has homicidal ideation: No Pulmonary Medical History: Reports: Hx Pneumonia Denies: Hx Asthma, Hx Bronchitis, Hx COPD, Hx Tuberculosis Endocrine Medical History: Reports: Hx Diabetes Mellitus Type 1 - diet controlled Renal/ Medical History: Denies: Hx Peritoneal Dialysis Psychiatric Medical History: Reports: Hx Depression - Immunizations Immunizations up to date: Yes Hx Diphtheria, Pertussis, Tetanus Vaccination: Yes - given today Review of Systems - Review of Systems Constitutional: No symptoms reported EENT: No symptoms reported Cardiovascular: No symptoms reported Respiratory: No symptoms reported Gastrointestinal: Abdominal pain Genitourinary: No symptoms reported Female Genitourinary: No symptoms reported Musculoskeletal: No symptoms reported Skin: No symptoms reported Hematologic/Lymphatic: No symptoms reported Neurological/Psychological: No symptoms reported Physical Exam - Vital signs Vitals: Temp Pulse Resp BP Pulse Ox 98.0 F 79 18 106/68 98 03/14/17 12:22 03/14/17 12:22 03/14/17 12:22 03/14/17 12:22 03/14/17 12:22 Interpretation: Normal - General General appearance: Appears well, Alert - HEENT Head: Normocephalic, Atraumatic Eyes: Normal Pupils: PERRL - Respiratory Respiratory status: No respiratory distress Chest status: Nontender Breath sounds: Normal Chest palpation: Normal - Cardiovascular Rhythm: Regular Heart sounds: Normal auscultation Murmur: No - Abdominal Inspection: Normal Distension: No distension Bowel sounds: Normal Tenderness: Nontender Organomegaly: No organomegaly - Back Back: Normal, Nontender - Extremities General upper extremity: Normal inspection, Nontender, Normal color, Normal ROM , Normal temperature General lower extremity: Normal inspection, Nontender, Normal color, Normal ROM , Normal temperature, Normal weight bearing. No: Cezar's sign - Neurological Neuro grossly intact: Yes Cognition: Normal Orientation: AAOx4 Santi Coma Scale Eye Opening: Spontaneous Santi Coma Scale Verbal: Oriented Santi Coma Scale Motor: Obeys Commands Santi Coma Scale Total: 15 Speech: Normal Motor strength normal: LUE, RUE, LLE, RLE Sensory: Normal - Psychological Associated symptoms: Normal affect, Normal mood - Skin Skin Temperature: Warm Skin Moisture: Dry Skin Color: Normal Course - Re-evaluation Re-evalutation: 03/14/17 18:24 Patient's beta-hCG is less than 30. Discussed with [facility] MANAGER on-call Dr. Sherly Dale recommended a repeat beta-hCG in the next 48 hours and for the patient follow-up in their office. Discussed with patient patient agrees at this time patient will be discharged home. Ectopic warming were given to the patient. - Vital Signs Vital signs: Temp Pulse Resp BP Pulse Ox 97.7 F 61 16 111/60 100 03/14/17 15:24 03/14/17 15:24 03/14/17 15:24 03/14/17 15:24 03/14/17 15:24 - Laboratory Result Diagrams: 03/14/17 13:25 03/14/17 13:25 Laboratory results interpreted by me: 03/14/17 03/14/17 13:25 13:25 WBC 11.1 H RDW 14.9 H Absolute Neutrophils 8.5 H BUN 6 L Glucose 70 L Beta HCG, Quant 29.25 H Discharge - Discharge Clinical Impression: Possible ectopic Qualifiers: Weeks of gestation: less than 8 weeks Qualified Code(s): Z3A.01 - Less than 8 weeks gestation of Condition: Good Disposition: HOME, SELF-CARE Instructions: Ectopic Precaution ([facility]), Ectopic ([facility]) ( [facility]) Additional Instructions: I discussed your case with ENVIRON[employer] MANAGER on-call Dr. Dale. Please follow-up on at the ENVIRONMENTAL PROGRAMS MANAGER's office. Prior to going to the office please go to outpatient laboratory testing to have a beta-hCG drawn. Return to the ER if any symptoms worsen. Please read her discharge instructions carefully. Forms: Follow-Up Laboratory Testing Referrals: FRANCISCO LIZARRAGA MD [Primary Care Provider] - Follow up as needed SHERLY DALE MD [ACTIVE STAFF] - 03/16/17 (call for follow up)
[2017-03-14 15:25] VITALS: BP 111/60
== END 2017-03-14 15:26 | disposition home or self-care (01) ==
LOC: ER 11:35
DX: O34.81 Maternal care for other abnormalities of pelvic organs, first trimester (principal); N83.202 Unspecified ovarian cyst, left side; O26.891 Other specified pregnancy related conditions, first trimester; R10.30 Lower abdominal pain, unspecified; O99.331 Smoking (tobacco) complicating pregnancy, first trimester; O24.011 Pre-existing type 1 diabetes mellitus, in pregnancy, first trimester; E10.9 Type 1 diabetes mellitus without complications; Z3A.01 Less than 8 weeks gestation of pregnancy; Z87.59 Personal history of other complications of pregnancy, childbirth and the puerperium
CPT/HCPCS: 36415; 80053; 83690; 84702; 85025; 85610; 85730; 86850; 86900; 86901; 99284

== ENCOUNTER → 2017-03-16 | Outpatient (CLI) | payer OTHER | LOC: OD 08:10 | PROVIDERS: ATTEND Specialist | DX: O00.90 Unspecified ectopic pregnancy without intrauterine pregnancy (principal) | CPT/HCPCS: 36415; 84702 ==

== ENCOUNTER 2017-03-22 12:35 | Emergency (ER) | payer OTHER ==
[2017-03-22] MEDS ORDERED: ONDANSETRON ODT 4 MG TAB (6 TAB/DSPK) PO PRN (14:32)
[2017-03-22] MEDS ORDERED: OXYCODONE-ACETAMINOPHEN 5-325 MG TABLET PO ONE (14:32)
--- NOTE | 2017-03-22 14:42 | RADIOLOGY REPORT (SQ) ---
EXAM DESCRIPTION: FOOT LEFT COMPLETE COMPLETED DATE/TIME: 03/22/2017 2:28 pm REASON FOR STUDY: crush injury great toe. Left COMPARISON: None. NUMBER OF VIEWS: Three views. TECHNIQUE: AP, lateral and oblique radiographic images acquired of the left foot. LIMITATIONS: None. FINDINGS: MINERALIZATION: Normal. BONES: No acute fracture or dislocation. No worrisome bone lesions. JOINTS: No effusions. SOFT TISSUES: No soft tissue swelling. No foreign body. OTHER: No other significant finding. IMPRESSION: NEGATIVE STUDY OF THE LEFT FOOT. NO RADIOGRAPHIC EVIDENCE OF ACUTE INJURY. TECHNICAL DOCUMENTATION: JOB ID: [id number] [employer]- All Rights Reserved
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
[2017-03-22 16:27] VITALS: BP 111/58
== END 2017-03-22 16:28 | disposition home or self-care (01) ==
LOC: ER 12:35
DX: S90.212A Contusion of left great toe with damage to nail, initial encounter (principal); M79.675 Pain in left toe(s); W20.8XXA Other cause of strike by thrown, projected or falling object, initial encounter; Y92.009 Unspecified place in unspecified non-institutional (private) residence as the place of occurrence of the external cause; F41.9 Anxiety disorder, unspecified; E10.9 Type 1 diabetes mellitus without complications; J45.909 Unspecified asthma, uncomplicated
CPT/HCPCS: 99283

== ENCOUNTER → 2017-03-23 | Outpatient (CLI) | payer OTHER | LOC: OD 08:24 | PROVIDERS: ATTEND Specialist | DX: O20.0 Threatened abortion (principal) | CPT/HCPCS: 36415; 84702 ==

== ENCOUNTER 2017-05-14 04:05 | Emergency (ER) | payer OTHER ==
[2017-05-14] MEDS ORDERED: LORAZEPAM INJ 2 MG/1 ML VIAL IM ONE (04:15)
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
[2017-05-14] MEDS ORDERED: HYDROMORPHONE HCL INJ/PF 2 MG/ML AMPULE IM ONE (04:17)
--- NOTE | 2017-05-14 05:14 | RADIOLOGY REPORT (SQ) ---
EXAM DESCRIPTION: CT HEAD WITHOUT COMPLETED DATE/TIME: 05/14/2017 5:04 am REASON FOR STUDY: trauma COMPARISON: CT head 04/29/2015, 09/21/2013. TECHNIQUE: Axial images acquired through the brain without intravenous contrast. Images reviewed wi th bone, brain and subdural windows. Images stored on PACS. All CT scanners at this facility use dose modulation, iterative reconstruction, and/or weight based d osing when appropriate to reduce radiation dose to as low as reasonably achievable (ALARA). [facility]: Dose Right [facility]: CareDose [facility]: Dose Right [facility]: Teradose 4D [facility]: [employer] RADIATION DOSE: CT Rad equipment meets quality standard of care and radiation dose reduction techniq ues were employed. CTDIvol: 64.6 mGy. DLP: 1163 mGy-cm. mGy. LIMITATIONS: Motion. Streak artifact from the piercing. FINDINGS: VENTRICLES: Normal size and contour. CEREBRUM: No mass effect. No hemorrhage. No midline shift. Normal thompson/white matter differentiatio n. No evidence for acute territorial infarction. CEREBELLUM: No mass effect. No hemorrhage. No alteration of density. No evidence for acute infarct ion. EXTRAAXIAL SPACES: No fluid collections. ORBITS AND GLOBE: Symmetrical contour of the globes. CALVARIUM: No depressed skull fracture. PARANASAL SINUSES: No air-fluid level. SOFT TISSUES: No hematoma. IMPRESSION: No acute intracranial hemorrhage or depressed calvarial fracture. EVIDENCE OF ACUTE STROKE: NO. COMMENT: Quality ID # [id number]: Final reports with documentation of one or more dose reduction techniques (e.g., Automated exposure control, adjustment of the mA and/or kV according to patient size, use of iterative reconstruction technique) TECHNICAL DOCUMENTATION: JOB ID: [id number] [employer]- All Rights Reserved
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
[2017-05-14] MEDS ORDERED: METOCLOPRAMIDE HCL INJ/PF 10 MG/2 ML SDV IM ONE (05:42)
[2017-05-14] MEDS ORDERED: DIPHENHYDRAMINE HCL 50 MG/ML VIAL IM ONE (05:42)
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
[2017-05-14 07:40] VITALS: BP 95/40
== END 2017-05-14 07:40 | disposition home or self-care (01) ==
LOC: ER 04:05
DX: S06.0X0A Concussion without loss of consciousness, initial encounter (principal); M25.532 Pain in left wrist; Y04.0XXA Assault by unarmed brawl or fight, initial encounter; M79.631 Pain in right forearm; F10.129 Alcohol abuse with intoxication, unspecified
CPT/HCPCS: 99284; 36415; 84702; 73130; 73110; 70450; 72125; L3908; J1200; J2765; J1170

== ENCOUNTER 2017-07-17 06:56 | Day surgery (SDC) | payer OTHER ==
[2017-07-17] MEDS ORDERED: CEFTRIAXONE 1 GM/D5W RTU 1 GM/50 ML RTUPB IV ONE (07:12)
[2017-07-17 07:27] LABS: HEMATOCRIT 38.7 % (36.0-47.0); MEAN CORPUSCULAR HGB CONC 33.6 g/dL (32.0-36.0); MEAN CORPUSCULAR VOLUME 86 fl (80-97); PLATELET COUNT 185 10^3/uL (150-450); RED BLOOD COUNT 4.48 10^6/uL (3.72-5.28); RED CELL DISTRIBUTION WIDTH 14.2 % (11.5-14.0); WHITE BLOOD COUNT 6.8 10^3/uL (4.0-10.5)
[2017-07-17 07:32] LABS: APPEARANCE,URINE CLOUDY; BILIRUBIN,URINE NEGATIVE (NEGATIVE); COLOR,URINE YELLOW; GLUCOSE, URINE NEGATIVE (NEGATIVE); KETONES,URINE NEGATIVE (NEGATIVE); LEUKOCYTE ESTERASE,URINE LARGE (NEGATIVE); NITRITE,URINE NEGATIVE (NEGATIVE); PROTEIN,URINE NEGATIVE (NEGATIVE); URINE SPECIFIC GRAVITY 1.027; UROBILINOGEN,URINE NEGATIVE mg/dL (<2.0)
[2017-07-17] MEDS ORDERED: FENTANYL CITRATE INJ/PF 100 MCG/2 ML AMPUL ONE ×2 (09:09)
[2017-07-17] MEDS ORDERED: MIDAZOLAM 2 MG/2 ML INJ ONE ×2 (09:09→10:14)
[2017-07-17] MEDS ORDERED: PROPOFOL INJ 200 MG/20 ML VIAL IV ONE (09:10)
[2017-07-17] MEDS ORDERED: MEPERIDINE HCL/PF INJ 25 MG/1 ML DISP.SYRIN IV PRN (09:47)
[2017-07-17] MEDS ORDERED: FENTANYL CITRATE INJ/PF 100 MCG/2 ML AMPUL IV PRN ×3 (09:47)
[2017-07-17] MEDS ORDERED: DIPHENHYDRAMINE HCL 50 MG/ML VIAL IV PRN (09:47)
[2017-07-17] MEDS ORDERED: PROMETHAZINE HCL INJ 25 MG/1 ML VIAL IV PRN (09:47)
[2017-07-17] MEDS: FENTANYL CITRATE INJ/PF 100 MCG/2 ML AMPUL ONE ×2 (10:05→10:25)
[2017-07-17] MEDS ORDERED: KETOROLAC TROMETHAMINE INJ/PF 30 MG/1 ML SDV ONE (10:10)
[2017-07-17] MEDS ORDERED: ACETAMINOPHEN 100 ML IV ONE (10:10)
[2017-07-17] MEDS ORDERED: IBUPROFEN 800 MG TABLET PO PRN (10:29)
[2017-07-17] MEDS ORDERED: MORPHINE SULFATE 10 MG/ML INJ IM PRN (10:29)
[2017-07-17] MEDS ORDERED: OXYCODONE-ACETAMINOPHEN 5-325 MG TABLET PO PRN ×2 (10:30)
[2017-07-17] MEDS ORDERED: RINGERS SOLUTION,LACTATED 1,000 ML IV PRN (10:30)
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
[2017-07-17 12:51] VITALS: BP 105/61
[2017-07-17] MEDS ORDERED: LIDOCAINE 2% INJ-PF (20 MG/ML) 2 ML AMPUL ONE (15:30)
[2017-07-17] MEDS ORDERED: DEXAMETHASONE SOD PHOSPHATE INJ 4 MG/1 ML VIAL ONE (15:30)
[2017-07-17] MEDS ORDERED: ONDANSETRON HCL INJ/PF 4 MG/2 ML SDV ONE (15:30)
== END 2017-07-17 12:05 | disposition home or self-care (01) ==
LOC: OROUT 06:56
PROVIDERS: ATTEND Obstetrics & Gynecology
PROC: 10D17ZZ Extraction of Products of Conception, Retained, Via Natural or Artificial Opening (ICD-10-PCS; principal; 2017-07-17 09:00)
DX: O03.4 Incomplete spontaneous abortion without complication (principal); J45.909 Unspecified asthma, uncomplicated; F17.210 Nicotine dependence, cigarettes, uncomplicated; D64.9 Anemia, unspecified; Z79.899 Other long term (current) drug therapy; Z88.1 Allergy status to other antibiotic agents
CPT/HCPCS: 36415; 85027; 81025; 81001; 59812; J2250; J1100; J3010; J1885; J2550; J2405; J2704; J0696; J0131; J3490; 1965

== ENCOUNTER 2018-03-01 07:36 | Emergency (ER) | payer OTHER ==
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
[2018-03-01 08:38] LABS: ABSOLUTE EOSINOPHILS # (AUTO) 0.1 10^3/uL (0.0-0.6); ABSOLUTE LYMPHOCYTES (AUTO) 3.3 10^3/uL (0.5-4.7); ABSOLUTE MONOCYTES (AUTO) 0.5 10^3/uL (0.1-1.4); ABSOLUTE NEUT (AUTO) 3.9 10^3/uL (1.7-8.2); BASOPHILS % (AUTO) 0.5 % (0-2); EOSINOPHILS % (AUTO) 0.7 % (0-6); HEMATOCRIT 38.2 % (36.0-47.0); HEMOGLOBIN 12.9 g/dL (12.0-15.5); LYMPHOCYTES % (AUTO) 42.4 % (13-45); MEAN CORPUSCULAR HEMOGLOBIN 28.5 pg (27.0-33.4); MEAN CORPUSCULAR HGB CONC 33.8 g/dL (32.0-36.0); MEAN CORPUSCULAR VOLUME 84 fl (80-97); MONOCYTES % (AUTO) 6.9 % (3-13); PLATELET COUNT 216 10^3/uL (150-450); RED BLOOD COUNT 4.54 10^6/uL (3.72-5.28); RED CELL DISTRIBUTION WIDTH 14.7 % (11.5-14.0); SEGMENTED NEUTROPHILS % (AUTO) 49.5 % (42-78); TOTAL CELLS COUNTED % (AUTO) 100 %; WHITE BLOOD COUNT 7.8 10^3/uL (4.0-10.5)
[2018-03-01 08:43] LABS: APPEARANCE,URINE CLOUDY; BILIRUBIN,URINE NEGATIVE (NEGATIVE); COLOR,URINE YELLOW; GLUCOSE, URINE NEGATIVE (NEGATIVE); KETONES,URINE NEGATIVE (NEGATIVE); LEUKOCYTE ESTERASE,URINE LARGE (NEGATIVE); NITRITE,URINE NEGATIVE (NEGATIVE); PROTEIN,URINE 30 mg/dL (NEGATIVE); URINE SPECIFIC GRAVITY 1.021; UROBILINOGEN,URINE NEGATIVE mg/dL (<2.0)
[2018-03-01 08:56] LABS: ACETAMINOPHEN < 10 ug/mL (10-30); ALANINE AMINOTRANSFERASE 13 U/L (9-52); ALBUMIN 4.5 g/dL (3.5-5.0); ALCOHOL 182 mg/dL (NONE DETECTED); ALKALINE PHOSPHATASE 61 U/L (38-126); ANION GAP 11 (5-19); ASPARTATE AMINO TRANSFERASE 18 U/L (14-36); BILIRUBIN,DIRECT 0.2 mg/dL (0.0-0.4); BILIRUBIN,TOTAL 0.3 mg/dL (0.2-1.3); BLOOD UREA NITROGEN 7 mg/dL (7-20); CARBON DIOXIDE 27 mmol/L (22-30); CHLORIDE 109 mmol/L (98-107); GLUCOSE 84 mg/dL (75-110); SALICYLATE < 1.0 mg/dL (2.0-20.0); SODIUM 147.4 mmol/L (137-145); TOTAL PROTEIN 7.8 g/dL (6.3-8.2); URINE AMPHETAMINES SCREEN NEGATIVE; URINE BARBITURATES SCREEN NEGATIVE; URINE BENZODIAZEPINES SCREEN NEGATIVE; URINE COCAINE SCREEN NEGATIVE; URINE MARIJUANA (THC) SCREEN NEGATIVE; URINE METHADONE SCREEN NEGATIVE; URINE PHENCYCLIDINE SCREEN NEGATIVE
--- NOTE | 2018-03-01 09:40 | EKG REPORT ---
SEVERITY:- NORMAL ECG - SINUS RHYTHM : Confirmed by: Oly Guerra MD 01-Mar-2018 09:39:59
[2018-03-01] MEDS ORDERED: FLUOXETINE HCL 20 MG CAPSULE PO SCH (10:15)
[2018-03-01] MEDS ORDERED: OLANZAPINE 2.5 MG TABLET PO SCH (10:15)
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
[2018-03-01 13:10] VITALS: BP 108/76
== END 2018-03-01 13:10 ==
LOC: ER 07:36
DX: S61.512A Laceration without foreign body of left wrist, initial encounter (principal); X78.9XXA Intentional self-harm by unspecified sharp object, initial encounter; Z63.0 Problems in relationship with spouse or partner; F10.120 Alcohol abuse with intoxication, uncomplicated; F31.9 Bipolar disorder, unspecified; J45.909 Unspecified asthma, uncomplicated; E10.9 Type 1 diabetes mellitus without complications
CPT/HCPCS: 93005; 99285; 36415; 80307 ×4; 84703; 85025; 80053; 81001; 93010; J3490

== ENCOUNTER 2018-05-05 08:38 | Emergency (ER) | payer OTHER ==
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
[2018-05-05] MEDS ORDERED: LIDOCAINE HCL 1% INJ (FOR 250 MG VIAL) INJ PRN (12:13)
[2018-05-05] MEDS ORDERED: CEFTRIAXONE INJ 250 MG VIAL IM PRN (12:13)
[2018-05-05] MEDS ORDERED: METRONIDAZOLE 500 MG TABLET PO PRN (13:00)
[2018-05-05] MEDS ORDERED: AZITHROMYCIN 1 GM SUSP PACKET PO PRN (13:00)
[2018-05-05 13:19] LABS: RBCS (WET MOUNT) 3+ RBCS SEEN; T.VAGINALIS (WET MOUNT) NO TRICHOMONAS SEEN; WBCS (WET MOUNT) 1+ WBCS SEEN; YEAST (WET MOUNT) NO YEAST SEEN
[2018-05-05 13:22] VITALS: BP 110/64
[2018-05-05 14:47] LABS: CHLAM PCR NOT DETECTED (NOT DETECT); GON PCR NOT DETECTED (NOT DETECT)
== END 2018-05-05 12:45 | disposition home or self-care (01) ==
LOC: ER 08:38
DX: J45.909 Unspecified asthma, uncomplicated (principal); E10.9 Type 1 diabetes mellitus without complications; T74.21XA Adult sexual abuse, confirmed, initial encounter
CPT/HCPCS: 87210; 87491; 87591; 99285

== ENCOUNTER 2018-05-22 21:54 | Emergency (ER) | payer OTHER ==
[2018-05-22 22:32] VITALS: BP 104/64
--- NOTE | 2018-05-22 22:44 | RADIOLOGY REPORT (SQ) ---
EXAM DESCRIPTION: XR CHEST 2 VIEWS COMPLETED DATE/TME: 05/22/2018 00:00 CLINICAL HISTORY: 33 years Female, cough COMPARISON: 04/12/15 NUMBER OF VIEWS/TECHNIQUE: 2, Frontal, Lateral FINDINGS: Adequate lung volume, clear parenchyma, normal cardiac silhouette, and intact bony thorax. IMPRESSION: No acute cardiopulmonary findings.
--- NOTE | 2018-05-23 00:26 | ER Document Report ---
ED General - General Chief Complaint: Flu Symptoms Stated Complaint: COUGH,RUNNY NOSE,CHEST PAIN Time Seen by Provider: 05/23/18 00:25 Mode of Arrival: Ambulatory Information source: Patient, [facility] Records Notes: 33-year-old female with no reported past medical history presents with complaint of cough, rhinorrhea and chest pain. Patient states that she has had a constant, nonproductive cough for approximately 1 week. Patient has associated chest pain only with coughing that she describes as burning. She has had several episodes of posttussive emesis. She has been taking TheraFlu without relief. She denies any fever, chills, ear pain, sore throat, headache, shortness of breath, sick contacts. Patient did not receive a flu shot this year. She does admit to smoking half a pack of cigarettes per day. TRAVEL OUTSIDE OF THE [place] IN LAST 30 DAYS: No - HPI Onset: Other Onset/Duration: Gradual, Persistent, Worse Quality of pain: Burning Severity: Mild Associated symptoms: Chest pain, Nonproductive cough. denies: Productive cough, Nausea, Vomiting, Shortness of breath Exacerbated by: Coughing Relieved by: Denies Similar symptoms previously: No Recently seen / treated by doctor: No - Related Data Allergies/Adverse Reactions: No Known Allergies Allergy (Verified 05/23/18 00:44) Past Medical History - General Information source: Patient, [facility] Records - Social History Smoking Status: Current Every Day Smoker Cigarette use (# per day): Yes - 10 Smoking Education Provided: Yes - Smoking cessation counseling was provided for 4 minutes at the bedside Frequency of alcohol use: None Drug Abuse: None Lives with: Family Family History: Reviewed & Not Pertinent - Past Medical History Cardiac Medical History: Denies: Hx Coronary Artery Disease, Hx Heart Attack, Hx Hypertension Pulmonary Medical History: Reports: Hx Asthma - EXERCISED INDUCED, Hx Pneumonia Denies: Hx Bronchitis, Hx COPD, Hx Tuberculosis Neurological Medical History: Denies: Hx Cerebrovascular Accident, Hx Seizures Endocrine Medical History: Comment Only: Hx Diabetes Mellitus Type 1 - diet controlled Renal/ Medical History: Denies: Hx Peritoneal Dialysis Musculoskeletal Medical History: Denies Hx Arthritis Psychiatric Medical History: Reports: Hx Depression - Immunizations Immunizations up to date: Yes Hx Diphtheria, Pertussis, Tetanus Vaccination: Yes - given today Review of Systems - Review of Systems Notes: REVIEW OF SYSTEMS: CONSTITUTIONAL : Denies fever, chills, or sweats. Denies recent illness. Denies weight loss, recent hospitalizations. EENT: Denies visual changes, eye pain. Denies sore throat, oral lesions, difficulty swallowing. CARDIOVASCULAR: Denies palpitations. Denies lower extremity edema. RESPIRATORY: Denies shortness of breath, wheezing. GASTROINTESTINAL: Denies abdominal pain or distention. Denies nausea, vomiting, or diarrhea. Denies blood in vomitus, stools, or per rectum. Denies black, tarry stools. Denies constipation. GENITOURINARY: Denies difficulty urinating, painful urination, frequency, blood in urine, or vaginal discharge. MUSCULOSKELETAL: Denies back or neck pain or stiffness. Denies joint pain or swelling. SKIN: Denies rash, lesions or sores. HEMATOLOGIC : Denies easy bruising or bleeding. LYMPHATIC: Denies swollen glands. NEUROLOGICAL: Denies confusion or altered mental status. Denies loss of consciousness. Denies dizziness or lightheadedness. Denies headache. Denies weakness or paralysis. Denies problems difficulty with ambulation, slurred speech. Denies sensory loss, numbness, or tingling. Denies seizures. PSYCHIATRIC: Denies anxiety or stress. Denies depression, suicidal ideation, or homicidal ideation. Denies visual or auditory hallucinations. Physical Exam - Vital signs Vitals: Temp Pulse Resp BP Pulse Ox 98.7 F 76 16 104/64 97 05/22/18 22:30 05/22/18 22:30 05/22/18 22:30 05/22/18 22:30 05/22/18 22:30 - Notes Notes: PHYSICAL EXAMINATION: GENERAL: Well-appearing, well-nourished and in no acute distress. HEAD: Atraumatic, normocephalic. EYES: Pupils equal round and reactive to light, extraocular movements intact, conjunctiva are normal. ENT: Nares patent, oropharynx clear without exudates. Moist mucous membranes. NECK: Normal range of motion, supple without lymphadenopathy LUNGS: Breath sounds clear to auscultation bilaterally and equal. No wheezes rales or rhonchi. Persistent cough. No increased work of breathing. No accessory muscle use. Patient able to speak in full sentences. No tachypnea, hypoxia. On room air HEART: Regular rate and rhythm without murmurs ABDOMEN: Soft, nontender, nondistended abdomen. No guarding, no rebound. No masses appreciated. Female : deferred Musculoskeletal: Normal range of motion, no pitting or edema. No cyanosis. NEUROLOGICAL: Cranial nerves grossly intact. Normal speech, normal gait. Normal sensory, motor exams PSYCH: Normal mood, normal affect. SKIN: Warm, Dry, normal turgor, no rashes or lesions noted. Course - Re-evaluation Re-evalutation: Chest X-Ray 05/22/18 00:00 IMPRESSION: No acute cardiopulmonary findings. Temp Pulse Resp BP Pulse Ox 98.7 F 76 16 104/64 97 05/22/18 22:30 05/22/18 22:30 05/22/18 22:30 05/22/18 22:30 05/22/18 22:30 05/23/18 00:34 33-year-old female presents with cough, rhinorrhea that have been present for 1 week. She has tried TheraFlu without relief. Vital signs reviewed and within normal limits upon arrival. Patient does not appear toxic or dehydrated. She is in no acute distress. Chest x-ray was obtained and showed no evidence of infection, pneumothorax. Patient presents with a clinical history and exam most consistent with an acute viral bronchitis. Patient is overall well in appearance without tachypnea, hypoxemia, tachycardia, or difficulty with ambulation. Breath sounds are clear bilaterally. No fever. Patient does have additional signs of upper respiratory infection including nasal congestion, sore throat, and sinus pressure. No indication for labs or imaging. Will treat with bronchodilators, single dose of dexamethasone, and Tessalon Perles. At this time will discharge with return precautions and follow-up recommendations. Verbal discharge instructions given a the bedside and opportunity for questions given. Medication warnings reviewed. Patient is in agreement with this plan and has verbalized understanding of return precautions and the need for primary care follow-up in the next 24-72 hours. 05/23/18 01:28 Patient reevaluated and reports improvement after receiving breathing treatments, dexamethasone and Robitussin. Smoking cessation is advised. Patient was evaluated and treated as appropriate for the patient's presenting symptoms and complaint, with consideration of any critical or life threatening conditions that may be associated with their obtained history and exam as noted above. All results were discussed with patient and who is at the bedside. Patient provided the opportunity to ask questions, and express concerns. Patient was educated on treatments based on their presumed diagnosis as noted above. At this time we will discharge the patient with return precautions and follow-up recommendations. Verbal discharge instructions given a the bedside. Medication warnings reviewed. Patient is in agreement with this plan and has verbalized understanding of return precautions. After careful consideration I feel that that patient can be safely discharged fr the emergency department, they were advised to followup with a primary care physician in 2-3 days. Dictation on this chart was performed using voice recognition software and may result in unintended grammatical, spelling, syntax or errors. - Vital Signs Vital signs: Temp Pulse Resp BP Pulse Ox 98.7 F 76 16 104/64 97 05/22/18 22:30 05/22/18 22:30 05/22/18 22:30 05/22/18 22:30 05/22/18 22:30 - Diagnostic Test Radiology reviewed: Image reviewed, Reports reviewed Discharge - Discharge Clinical Impression: Bronchitis URI (upper respiratory infection) Qualifiers: URI type: unspecified URI Qualified Code(s): J06.9 - Acute upper respiratory infection, unspecified Condition: Good Disposition: HOME, SELF-CARE Instructions: Upper Respiratory Illness ([facility]), Bronchitis ([facility]) Additional Instructions: You were seen for symptoms most consistent with bronchitis. This can take up to 12 weeks to fully resolve. This is generally due to a viral infection. Please follow-up with your primary doctor in the next 2-3 days. Return if you develop worsening cough, vomiting, fever >100.4, pass out, begin coughing blood, or have any other symptoms that are concerning to you. Please use the medications prescribed today as directed. Prescriptions: Guaifenesin/Codeine Phos [Robitussin-AC Syrup 59 ml] 10 ml PO QHS #50 ml Forms: Smoking Cessation Education
[2018-05-23] MEDS ORDERED: GUAIFENESIN/CODEINE PHOS 100-10 MG/ 5 ML UDC PO ONE (00:31)
[2018-05-23] MEDS ORDERED: IPRATROPIUM/ALBUTEROL 0.5-2.5 MG/3 ML AMPUL NEB ONE (00:31)
[2018-05-23] MEDS ORDERED: DEXAMETHASONE 4 MG TABLET PO ONE (00:35)
[2018-05-23 01:25] LABS: A TYPE INFLUENZA AG NEGATIVE (NEGATIVE); B INFLUENZA AG NEGATIVE (NEGATIVE)
[2018-05-23] MEDS ORDERED: ALBUTEROL SULFATE HFA (90 MCG/PUFF) 8 GM MDI (1 MDI/ER DISP) IH PRN (01:28)
== END 2018-05-23 01:50 | disposition home or self-care (01) ==
LOC: ER 21:54
DX: J06.9 Acute upper respiratory infection, unspecified (principal); J45.909 Unspecified asthma, uncomplicated; R05 Cough; R07.9 Chest pain, unspecified; R09.81 Nasal congestion; J02.9 Acute pharyngitis, unspecified; J34.89 Other specified disorders of nose and nasal sinuses; E10.9 Type 1 diabetes mellitus without complications; F17.210 Nicotine dependence, cigarettes, uncomplicated; Z71.6 Tobacco abuse counseling; Z87.01 Personal history of pneumonia (recurrent)
CPT/HCPCS: 99406; 94640; 99283; 87804; 71046; J3490; J7620

== ENCOUNTER 2019-03-25 09:57 | Emergency (ER) | payer OTHER ==
[2019-03-25 11:02] VITALS: BP 114/58
[2019-03-25] MEDS ORDERED: IPRATROPIUM/ALBUTEROL 0.5-2.5 MG/3 ML AMPUL NEB ONE ×2 (12:04→14:22)
[2019-03-25] MEDS ORDERED: BENZONATATE 100 MG CAPSULE PO ONE (12:08)
--- NOTE | 2019-03-25 12:08 | ER Document Report ---
HPI - HPI Time Seen by Provider: 03/25/19 11:55 Pain Level: 3 Context: Patient is a 33-year-old female who presents emergency department with a chief complaint of cough, congestion and runny nose. She reports that she has had a dry cough for about 1.5 months. She reports that her son is sick with similar symptoms. She denies fever. She reports she does smoke cigarettes but has not been smoking as much due to her illness. She reports the cough is the worst. She reports that she has been using [id number] medications without relief. Denies ear pain, sore throat, nausea or vomiting. Denies diarrhea. - REPRODUCTIVE Reproductive: DENIES: : Past Medical History - General Information source: Patient - Social History Smoking Status: Current Every Day Smoker Frequency of alcohol use: None Drug Abuse: None Lives with: Family Family History: Reviewed & Not Pertinent Patient has suicidal ideation: No Patient has homicidal ideation: No - Past Medical History Cardiac Medical History: Reports: None Denies: Hx Coronary Artery Disease, Hx Heart Attack, Hx Hypertension Pulmonary Medical History: Reports: Hx Asthma - EXERCISED INDUCED, Hx Pneumonia Denies: Hx Bronchitis, Hx COPD, Hx Tuberculosis EENT Medical History: Reports: None Neurological Medical History: Reports: None. Denies: Hx Cerebrovascular Accident, Hx Seizures Endocrine Medical History: Reports: NoneComment Only: Hx Diabetes Mellitus Type 1 - diet controlled Renal/ Medical History: Reports: None. Denies: Hx Peritoneal Dialysis Malignancy Medical History: Reports: None GI Medical History: Reports: None Musculoskeletal Medical History: Reports None, Denies Hx Arthritis Skin Medical History: Reports None Psychiatric Medical History: Reports: Hx Depression Traumatic Medical History: Reports: None Infectious Medical History: Reports: None Surgical Hx: Negative - Immunizations Immunizations up to date: Yes Hx Diphtheria, Pertussis, Tetanus Vaccination: Yes - given today Vertical Provider Document - CONSTITUTIONAL Agree With Documented VS: Yes Exam Limitations: No Limitations General Appearance: No Apparent Distress - INFECTION CONTROL TRAVEL OUTSIDE OF THE [place] IN LAST 30 DAYS: No - HEENT HEENT: Atraumatic, Normal ENT Exam, Normocephalic, PERRLA - NECK Neck: Normal Inspection - RESPIRATORY Respiratory: Breath Sounds Normal, No Respiratory Distress Notes: Persistent dry cough noted during examination. - CARDIOVASCULAR Cardiovascular: Regular Rate, Regular Rhythm - GI/ABDOMEN Gastrointestinal: Abdomen Soft, Abdomen Non-Tender, Normal Bowel Sounds - MUSCULOSKELETAL/EXTREMETIES Musculoskeletal/Extremeties: FROM, Non-Tender - NEURO Level of Consciousness: Awake, Alert, Appropriate - DERM Integumentary: Warm, Dry, No Rash Course - Re-evaluation Re-evalutation: 03/25/19 14:55 Patient reports feeling better after receiving breathing treatments. Patient reports that she does have a history of asthma and that she has not used any inhalers or nebulizer treatments at home recently as she does not have a prescription for them. Patient no acute distress. Patient will be placed on steroids as well as given an albuterol inhaler to go home with. Patient given strict return precautions. Patient instructed to refrain from smoking cigarettes as this can exacerbate her symptoms and make the shortness of breath worse. - Vital Signs Vital signs: Temp Pulse Resp BP Pulse Ox 97.5 F 63 20 114/58 L 99 03/25/19 11:43 03/25/19 11:01 03/25/19 11:43 03/25/19 11:01 03/25/19 11:43 Discharge - Discharge Clinical Impression: Cough, Congestion of respiratory tract URI (upper respiratory infection) Qualifiers: URI type: unspecified viral URI Qualified Code(s): J06.9 - Acute upper respiratory infection, unspecified Condition: Stable Disposition: HOME, SELF-CARE Additional Instructions: UPPER RESPIRATORY ILLNESS: You have a viral infection of the respiratory passages -- a "cold." This common infection causes nasal congestion, drainage, and often sore throat and cough. It is highly contagious. The disease usually lasts about 10 to 14 days. There is no "cure" for the viral infection -- it must run its course. If there is a complication, such as bacterial infection in the nose, sinuses, middle ear, or bronchial tubes, antibiotics may be required. The antibiotics won't affect the virus. Drink plenty of fluids. A humidifier may help. An expectorant medication or decongestant may make you more comfortable. Use acetaminophen or ibuprofen for fever or aches. See the doctor if fever persists over two days, if there is any significant worsening of your symptoms, or if you simply fail to improve as expected. COUGH-SUPPRESSANT & EXPECTORANT MEDICATION: You are to use a cough medication as needed for relief of symptoms. This medicine is a combination of an expectorant (to make the mucous thinner and more easily "coughed up") and a cough suppressant (to reduce the frequency of coughing). The cough-suppressant medicine is related to narcotics. You may experience mild nausea and sleepiness. Some patients who are very sensitive to narcotics may have stomach pain from this medicine. Taking the medicine with food reduces these side effects. Do not drive or work with machinery until you know how this medicine affects you. The expectorant should have no side effects. Iodine-containing expectorants (such as organidin) should not be taken by persons with active thyroid disease unless approved by your doctor. Call the doctor if you develop shortness of breath, hives, rash, itching, lightheadedness, or severe nausea and vomiting. INHALED BRONCHODILATORS: You have received a treatment of and/or prescription for an inhaled b ronchodilator -- a medication which stimulates the airways in the lung to dilate. This improves the flow of air in asthma, bronchitis, and emphysema. These medicines have some similarity to adrenaline, and can cause similar side effects: shakiness, racing heart, and a sense of nervousness. These side effects decrease with time. Contact your doctor if these side effects are severe. Do not over-use the medicine. Too-frequent use of the inhaler may make it ineffective. Call your doctor if the inhaler is not controlling your symptoms at the prescribed doses. STEROID MEDICATION: You have been given an injection of or oral medicine of the cortisone/steroid class. This medication is used to control inflammation or allergy. [place] t is usually only given for a short period of time, until the acute process subsides. There are usually no side effects from short-term use of cortisone-like medications. Some persons feel an increased sense of well-being and are not sleepy at bedtime. Long-term use of cortisone medications is best avoided, unless required for a severe condition. If your condition does not remit, or relapses after the course of corticosteroid medication, you should consult your physician. USE OF ACETAMINOPHEN (Tylenol): Acetaminophen may be taken for pain relief or fever control. It's much safer than aspirin, offering a wider range of "safe" dosages. It is safe during . Some brand names are Tylenol, Panadol, Datril, Anacin 3, Tempra, and Liquiprin. Acetaminophen can be repeated every four hours. The following are maximum recommended dosages: >89 pounds or adults 650 mg to 900 mg Acetaminophen can be repeated every four hours. Maximum dose not to exceed 4000 mg a day. SMOKING: If you smoke, you should stop smoking. The tar and chemicals in cigarette smoke are harmful. Smoking has been shown to cause: emphysema chronic bronchitis lung cancer mouth and throat cancer stomach and pancreas cancer premature aging defects In addition, smoking increases ear and lung infections in children of smokers. FOLLOW-UP CARE: If you have been referred to a physician for follow-up care, call the physicians office for an appointment as you were instructed or within the next two days. If you experience worsening or a significant change in your symptoms, notify the physician immediately or return to the Emergency Department at any time for re-evaluation. Prescriptions: Benzonatate [Tessalon Perles 100 mg Capsule] 100 mg PO Q8HP PRN #40 capsule PRN Reason: Prednisone [Deltasone 10 mg Tablet] 10 mg PO ASDIR PRN #21 tablet PRN Reason: Referrals: FRANCISCO LIZARRAGA MD [Primary Care Provider] - Follow up as needed
--- NOTE | 2019-03-25 12:34 | RADIOLOGY REPORT (SQ) ---
EXAM DESCRIPTION: CHEST 2 VIEWS COMPLETED DATE/TIME: 03/25/2019 12:25 pm REASON FOR STUDY: cough x 1.5 months COMPARISON: 05/22/2018 EXAM PARAMETERS: NUMBER OF VIEWS: two views TECHNIQUE: Digital Frontal and Lateral radiographic views of the chest acquired. RADIATION DOSE: NA LIMITATIONS: none FINDINGS: LUNGS AND PLEURA: No opacities, masses or pneumothorax. No pleural effusion. MEDIASTINUM AND HILAR STRUCTURES: No masses or contour abnormalities. HEART AND VASCULAR STRUCTURES: Heart normal size. No evidence for failure. BONES: No acute findings. HARDWARE: None in the chest. OTHER: No other significant finding. IMPRESSION: NO ACUTE RADIOGRAPHIC FINDING IN THE CHEST. TECHNICAL DOCUMENTATION: JOB ID: [id number] [employer]- All Rights Reserved Reading location - IP/workstation name: [email or web address]
[2019-03-25] MEDS ORDERED: PREDNISONE 20 MG TABLET PO ONE (14:21)
[2019-03-25] MEDS ORDERED: ALBUTEROL SULFATE HFA (90 MCG/PUFF) 8 GM MDI (1 MDI/ER DISP) IH PRN (14:42)
== END 2019-03-25 15:00 | disposition home or self-care (01) ==
LOC: ER 09:57
DX: J06.9 Acute upper respiratory infection, unspecified (principal); B97.89 Other viral agents as the cause of diseases classified elsewhere; R05 Cough; R09.89 Other specified symptoms and signs involving the circulatory and respiratory systems; F17.210 Nicotine dependence, cigarettes, uncomplicated; J45.909 Unspecified asthma, uncomplicated; Z87.01 Personal history of pneumonia (recurrent)
CPT/HCPCS: 71046; J7512; J3490; J7620; 94640; 99283

== ENCOUNTER 2019-04-28 22:56 | Emergency (ER) | payer OTHER ==
--- NOTE | 2019-04-29 00:42 | RADIOLOGY REPORT (SQ) ---
EXAM DESCRIPTION: XR FOOT 1-2 VIEWS COMPLETED DATE/TME: 04/28/2019 00:00 CLINICAL HISTORY: bone pain COMPARISON: None FINDINGS: Three x-ray views of the left foot were submitted. There is no acute fracture or dislocation. Bone mineralization is within normal limits. There is no radiopaque foreign body material. IMPRESSION: No acute fracture or dislocation.
[2019-04-29] MEDS ORDERED: KETOROLAC TROMETHAMINE 60 MG/2 ML SDV IM ONE (02:44)
[2019-04-29] MEDS ORDERED: DEXAMETHASONE SOD PHOS INJ 10 MG/1 ML VIAL IM ONE (02:45)
--- NOTE | 2019-04-29 03:09 | ER Document Report ---
ED General - General Chief Complaint: Foot Pain Stated Complaint: FOOT PAIN Time Seen by Provider: 04/29/19 01:51 Primary Care Provider: FRANCISCO LIZARRAGA MD [Primary Care Provider] - Follow up as needed Notes: 33-year-old woman presents to the emergency department with complaint of throbbing pain in her left foot. Apparently, she has had a history of a similar episode when she was in the . She is concerned she may have a stress fracture, she denies a known injury. She awoke yesterday morning 04/28/2019 with severe pain in the left foot. She states the pain has been unrelenting and throbbing. It involves the distal part of the foot and also the plantar surface of the foot. There is also some mild warmth and swelling noted. TRAVEL OUTSIDE OF THE [place] IN LAST 30 DAYS: No - Related Data Allergies/Adverse Reactions: No Known Allergies Allergy (Verified 05/23/18 00:44) Past Medical History - Social History Smoking Status: Current Every Day Smoker Family History: Reviewed & Not Pertinent Patient has suicidal ideation: No Patient has homicidal ideation: No - Past Medical History Cardiac Medical History: Denies: Hx Coronary Artery Disease, Hx Heart Attack, Hx Hypertension Pulmonary Medical History: Reports: Hx Asthma - EXERCISED INDUCED, Hx Pneumonia Denies: Hx Bronchitis, Hx COPD, Hx Tuberculosis Neurological Medical History: Denies: Hx Cerebrovascular Accident, Hx Seizures Endocrine Medical History: Comment Only: Hx Diabetes Mellitus Type 1 - diet controlled Renal/ Medical History: Denies: Hx Peritoneal Dialysis Musculoskeletal Medical History: Denies Hx Arthritis Psychiatric Medical History: Reports: Hx Depression - Immunizations Immunizations up to date: Yes Hx Diphtheria, Pertussis, Tetanus Vaccination: Yes - given today Review of Systems - Review of Systems Notes: Constitutional: Negative for fever. HENT: Negative for sore throat. Eyes: Negative for visual changes. Cardiovascular: Negative for chest pain. Respiratory: Negative for shortness of breath. Gastrointestinal: Negative for abdominal pain, vomiting or diarrhea. Genitourinary: Negative for dysuria. Musculoskeletal: + Left foot pain Skin: Negative for rash. Neurological: Negative for headaches, weakness or numbness. 10 point ROS negative except as marked above and in HPI. Physical Exam - Vital signs Vitals: Temp Pulse Resp BP Pulse Ox 98.3 F 69 16 105/63 98 04/28/19 23:03 04/28/19 23:03 04/28/19 23:03 04/28/19 23:03 04/28/19 23:03 - Notes Notes: PHYSICAL EXAMINATION: Physical Exam: General: Well-nourished well-developed in no acute distress HEENT: NC/AT, pupils equal round and reactive to light, MM moist,nares clear, Neck: supple, no adenopathy, no masses. Lungs: clear, no wheezing, no rales no rhonchi CVS: Regular rate and rhythm no murmur gallop or rub Abdomen: Soft active nontender, no masses, no hepatosplenomegaly Ext: Tenderness on the distal plantar surface, tenderness on the distal dorsal aspect of the metatarsals. Neurovascular intact with good pulses and good sensation, mild swelling with increased warmth in the left foot.. Neuro: Alert and responsive, moving all 4 extremities on command, cranial nerves intact. Skin: Intact no open lesions, no rash PSYCH: Normal mood, normal affect. Course - Re-evaluation Re-evalutation: 04/29/19 03:14 I reviewed the findings of the x-ray with the patient and explained that her symptoms appear to be inflammatory and may be even associated with tendon in the plantar surface of the foot. Plantar tendinitis and/fasciitis can be very painful. I doubt gout only in that she has little severe pain to soft touch and no prior history of similar episodes. When in the she was diagnosed with plantar fasciitis and tendinitis, however refused to have steroid injection therapy at that time. She has agreed to a shot of Toradol and Decadron in the emergency department, I will give her prednisone and Naprosyn for outpatient management. She is encouraged to use a cold pack on the area of swelling elevate the foot when she can and to follow-up with her primary care doctor. The patient acknowledges understanding of this plan and is in agreement. - Vital Signs Vital signs: Temp Pulse Resp BP Pulse Ox 98.3 F 69 16 105/63 98 04/28/19 23:03 04/28/19 23:03 04/28/19 23:03 04/28/19 23:03 04/28/19 23:03 - Diagnostic Test Radiology reviewed: Image reviewed, Reports reviewed - X-ray left foot: No acute bony injury noted. Discharge - Discharge Clinical Impression: Left foot pain, Plantar fasciitis of left foot, Tendinitis of left foot Condition: Good Disposition: HOME, SELF-CARE Instructions: Tendonitis ([facility]), Plantar Fasciitis or Heel Spur ([facility]) Additional Instructions: You are diagnosed with plantar fasciitis and tendinitis of the left foot, this is inflammatory process and you have been prescribed anti-inflammatory medications to treat it. Please take the medications as prescribed Naprosyn and prednisone. Use a cold compress to the foot and elevate the foot when possible. Please follow-up with your primary care doctor as needed, may return to the emergency department if your symptoms are worsening or if you have other concerns. Referrals: FRANCISCO LIZARRAGA MD [Primary Care Provider] - Follow up as needed
[2019-04-29 03:15] VITALS: BP 101/62
== END 2019-04-29 03:30 | disposition home or self-care (01) ==
LOC: ER 22:56
DX: M72.2 Plantar fascial fibromatosis (principal); M77.9 Enthesopathy, unspecified; F17.200 Nicotine dependence, unspecified, uncomplicated; J45.909 Unspecified asthma, uncomplicated; E10.9 Type 1 diabetes mellitus without complications
CPT/HCPCS: 99283; 96372; 73620; J1885; J1100

== ENCOUNTER 2019-11-23 16:51 | Emergency (ER) | payer OTHER, MEDICAID ==
--- NOTE | 2019-11-23 18:18 | ER Document Report ---
ED GI/ - General Mode of Arrival: Ambulatory Information source: Patient TRAVEL OUTSIDE OF THE [place] IN LAST 30 DAYS: No - HPI Patient complains to provider of: Pelvic pain, , Vaginal discharge Onset: Last week Timing/Duration: Persistent Quality of pain: Sharp Pain Level: 3 Location: Pelvis Menstrual period history: Sexual history: Active, Unprotected intercourse Associated symptoms: Vaginal discharge. denies: Dysuria, Fever, Nausea, Urinary hesitancy, Urinary frequency, Urinary retention Exacerbated by: Denies Relieved by: Denies <MEGHAN CASTELLANOS - Last Filed: 11/23/19 19:56> <EULA IVAN - Last Filed: 11/23/19 21:08> - General Chief Complaint: Abdominal Pain Stated Complaint: ABDOMINAL PAIN Time Seen by Provider: 11/23/19 17:48 Notes: Patient presents complaining of lower pelvic pain for the past week. Patient states she is had some irregular bleeding this month. Patient reports having a positive test at home today. Patient does complain of some vaginal discharge as well. No urinary symptoms. (MEGHAN CASTELLANOS) - Related Data Allergies/Adverse Reactions: No Known Allergies Allergy (Verified 05/23/18 00:44) Past Medical History - General Information source: Patient - Social History Smoking Status: Current Every Day Smoker - Vaping Chew tobacco use (# tins/day): No Frequency of alcohol use: None Drug Abuse: None Occupation: [employer] Family History: Reviewed & Not Pertinent - Past Medical History Cardiac Medical History: Denies: Hx Coronary Artery Disease, Hx Heart Attack, Hx Hypertension Pulmonary Medical History: Reports: Hx Asthma - EXERCISED INDUCED, Hx Pneumonia Neurological Medical History: Denies: Hx Cerebrovascular Accident, Hx Seizures Endocrine Medical History: Comment Only: Hx Diabetes Mellitus Type 1 - diet controlled Renal/ Medical History: Denies: Hx Peritoneal Dialysis Musculoskeletal Medical History: Denies Hx Arthritis Psychiatric Medical History: Reports: Hx Depression Past Surgical History: Reports: Hx Dilation and Curettage - Immunizations Immunizations up to date: Yes Hx Diphtheria, Pertussis, Tetanus Vaccination: Yes - given today <MEGHAN CASTELLANOS - Last Filed: 11/23/19 19:56> Review of Systems - Review of Systems Constitutional: No symptoms reported EENT: No symptoms reported Cardiovascular: No symptoms reported. denies: Chest pain Respiratory: No symptoms reported. denies: Cough, Short of breath Gastrointestinal: Abdominal pain. denies: Diarrhea, Nausea, Vomiting Genitourinary: No symptoms reported. denies: Dysuria Female Genitourinary: , Vaginal discharge Musculoskeletal: Back pain Skin: No symptoms reported Hematologic/Lymphatic: No symptoms reported Neurological/Psychological: No symptoms reported <JASMINMEGHAN Dixon - Last Filed: 11/23/19 19:56> Physical Exam - General General appearance: Appears well, Alert In distress: None - HEENT Head: Normocephalic, Atraumatic Eyes: Normal Conjunctiva: Normal Nasal: Normal Mouth/Lips: Normal Mucous membranes: Normal Neck: Normal, Supple. No: Lymphadenopathy - Respiratory Respiratory status: No respiratory distress Chest status: Nontender Breath sounds: Normal. No: Rales, Rhonchi, Stridor, Wheezing Chest palpation: Normal - Cardiovascular Rhythm: Regular Heart sounds: S1 appreciated, S2 appreciated Murmur: No - Abdominal Inspection: Normal Distension: No distension Bowel sounds: Normal Tenderness: Tender - lower pelvic Organomegaly: No organomegaly - Back Back: CVA tenderness - left - Extremities General upper extremity: Normal inspection, Normal ROM General lower extremity: Normal inspection, Normal ROM - Neurological Neuro grossly intact: Yes Cognition: Normal [place] Coma Scale Eye Opening: Spontaneous [place] Coma Scale Verbal: Oriented [place] Coma Scale Motor: Obeys Commands Santi Coma Scale Total: 15 - Psychological Associated symptoms: Normal affect, Normal mood - Skin Skin Temperature: Warm Skin Moisture: Dry Skin Color: Normal <JASMINRICHMONDNADIAPANCHO - Last Filed: 11/23/19 19:56> - Vital signs Vitals: Temp Pulse Resp BP Pulse Ox 97.9 F 86 16 112/66 100 11/23/19 17:02 11/23/19 17:02 11/23/19 17:02 11/23/19 17:02 11/23/19 17:02 Course - Laboratory Result Diagrams: 11/23/19 18:24 11/23/19 18:24 <MEGHAN CASTELLANOS - Last Filed: 11/23/19 19:56> - Laboratory Result Diagrams: 11/23/19 18:24 11/23/19 18:24 <EULA IVAN - Last Filed: 11/23/19 21:08> - Re-evaluation Re-evalutation: 11/23/19 19:56 Report and handoff given to Eula Ivan JOB TRAINER (MEGHAN CASTELLANOS) 11/23/19 20:06 Report received on patient 11/23/19 21:05 I evaluated the patient. Her ultrasound shows a 4 to 5-week intrauterine gestation. Also a probable right ovarian cyst. She also has vaginitis. I spoke with her at length about this. We will treat the vaginitis with Flagyl. I do not perform the patient's pelvic exam that was done by the previous shift. She states she has an ACTIVE DIRECTORY ADMINISTRATOR for follow-up and will call them on Monday. Return instructions were discussed (EULA IVAN) - Vital Signs Vital signs: Temp Pulse Resp BP Pulse Ox 97.9 F 86 16 112/66 100 11/23/19 17:02 11/23/19 17:02 11/23/19 17:02 11/23/19 17:02 11/23/19 17:02 - Laboratory Laboratory results interpreted by me: 11/23/19 11/23/19 18:24 18:24 WBC 12.0 H Hgb 11.9 L MCH 26.2 L RDW 16.4 H Absolute Neuts (auto) 9.3 H Sodium 136.5 L BUN 5 L Beta HCG, Quant 1018.10 H Discharge <MEGHAN CASTELLANOS - Last Filed: 11/23/19 19:56> <EULA IVAN - Last Filed: 11/23/19 21:08> - Discharge Clinical Impression: Bacterial vaginitis, Hemorrhagic cyst of right ovary Pelvic pain affecting Qualifiers: Trimester: first trimester Qualified Code(s): O26.891 - Other specified related conditions, first trimester; R10.2 - Pelvic and perineal pain Condition: Stable Disposition: HOME, SELF-CARE Additional Instructions: It was noted on your ultrasound today that you have a in the uterus measuring approximately 4 to 5 weeks gestation. It was also noted that you have a likely right ovarian cyst. It was also noted that you have bacterial vaginitis which is a bacterial infection inside the vagina. Take the Flagyl to treat this. Follow-up with your ACTIVE DIRECTORY ADMINISTRATOR for further evaluation and treatment as discussed. Call on Monday to obtain appointment. If you have worsening pain or onset of vaginal bleeding return for reevaluation Prescriptions: Metronidazole [Flagyl 500 mg Tablet] 500 mg PO BID #14 tablet Referrals: FRANCISCO LAKHANI MD [ACTIVE STAFF] - Follow up as needed
[2019-11-23 18:56] LABS: ABSOLUTE LYMPHOCYTES (AUTO) 1.9 10^3/uL (0.5-4.7); ABSOLUTE MONOCYTES (AUTO) 0.7 10^3/uL (0.1-1.4); ABSOLUTE NEUT (AUTO) 9.3 10^3/uL (1.7-8.2); BASOPHILS % (AUTO) 0.3 % (0-2); EOSINOPHILS % (AUTO) 0.3 % (0-6); HEMATOCRIT 36.2 % (36.0-47.0); HEMOGLOBIN 11.9 g/dL (12.0-15.5); LYMPHOCYTES % (AUTO) 15.8 % (13-45); MEAN CORPUSCULAR HEMOGLOBIN 26.2 pg (27.0-33.4); MEAN CORPUSCULAR HGB CONC 32.8 g/dL (32.0-36.0); MEAN CORPUSCULAR VOLUME 80 fl (80-97); MONOCYTES % (AUTO) 6.2 % (3-13); PLATELET COUNT 244 10^3/uL (150-450); RED BLOOD COUNT 4.53 10^6/uL (3.72-5.28); RED CELL DISTRIBUTION WIDTH 16.4 % (11.5-14.0); SEGMENTED NEUTROPHILS % (AUTO) 77.4 % (42-78); TOTAL CELLS COUNTED % (AUTO) 100 %
[2019-11-23 18:59] LABS: BACTERIA (WET MOUNT) 4+ BACTERIA SEEN; EPITHELIALS (WET MOUNT) 4+ EPITHELIALS SEEN; T.VAGINALIS (WET MOUNT) NO TRICHOMONAS SEEN; WBCS (WET MOUNT) 2+ WBCS SEEN; YEAST (WET MOUNT) NO YEAST SEEN
[2019-11-23 19:02] LABS: APPEARANCE,URINE CLEAR; BILIRUBIN,URINE NEGATIVE (NEGATIVE); COLOR,URINE YELLOW; GLUCOSE, URINE NEGATIVE (NEGATIVE); KETONES,URINE NEGATIVE (NEGATIVE); LEUKOCYTE ESTERASE,URINE NEGATIVE (NEGATIVE); NITRITE,URINE NEGATIVE (NEGATIVE); PROTEIN,URINE NEGATIVE (NEGATIVE); URINE SPECIFIC GRAVITY 1.013; UROBILINOGEN,URINE NEGATIVE mg/dL (<2.0)
[2019-11-23 19:20] LABS: ALBUMIN 4.4 g/dL (3.5-5.0); ALKALINE PHOSPHATASE 58 U/L (38-126); ANION GAP 6 (5-19); ASPARTATE AMINO TRANSFERASE 21 U/L (14-36); BILIRUBIN,TOTAL 0.4 mg/dL (0.2-1.3); BLOOD UREA NITROGEN 5 mg/dL (7-20); CALCIUM 9.4 mg/dL (8.4-10.2); CARBON DIOXIDE 27 mmol/L (22-30); CHLORIDE 104 mmol/L (98-107); GLUCOSE 88 mg/dL (75-110); TOTAL PROTEIN 7.8 g/dL (6.3-8.2)
[2019-11-23 20:24] LABS: CHLAM PCR NOT DETECTED (NOT DETECT)
--- NOTE | 2019-11-23 20:52 | RADIOLOGY REPORT (SQ) ---
EXAM DESCRIPTION: US TRANSVAGINAL COMPLETED DATE/TME: 11/23/2019 17:58 CLINICAL HISTORY: 34 years, Female, pelvic pain, vag bleeding COMPARISON: None. TECHNIQUE: LIMITATIONS: None. FINDINGS: There is a 2 mm cystic area in the region of the endometrium. This may represent a 4-5 week gestational sac, however, I cannot say this with certainty. There is no evidence of an embryo or yolk sac. There are 2 complex cysts in the right ovary, measuring 3.4 and 3.1 cm respectively, most likely hemorrhagic cysts. There is a minimal amount of free fluid in the right adnexa. IMPRESSION: Possible 4-5 week intrauterine gestational sac. Findings may also represent an incomplete spontaneous . Probable hemorrhagic cysts in the right ovary. copyright 2010 [employer]- All Rights Reserved
[2019-11-23] MEDS ORDERED: METRONIDAZOLE 500 MG TABLET PO ONE (21:07)
[2019-11-23 21:46] VITALS: BP 127/69
== END 2019-11-23 21:40 | disposition home or self-care (01) ==
LOC: ER 16:51
DX: O23.591 Infection of other part of genital tract in pregnancy, first trimester (principal); B96.89 Other specified bacterial agents as the cause of diseases classified elsewhere; O34.81 Maternal care for other abnormalities of pelvic organs, first trimester; N83.201 Unspecified ovarian cyst, right side; O26.891 Other specified pregnancy related conditions, first trimester; R10.9 Unspecified abdominal pain; N89.8 Other specified noninflammatory disorders of vagina; R10.2 Pelvic and perineal pain; O99.331 Smoking (tobacco) complicating pregnancy, first trimester; Z3A.01 Less than 8 weeks gestation of pregnancy; Z20.828 Contact with and (suspected) exposure to other viral communicable diseases
CPT/HCPCS: 36415; 76817; 80053; 81001; 84702; 85025; 86900; 86901; 87210; 87491; 87591; 99284

== ENCOUNTER 2019-11-29 10:41 | Emergency (ER) | payer MEDICAID, OTHER ==
--- NOTE | 2019-11-29 12:09 | ER Document Report ---
ED Medical Screen (RME) - General Chief Complaint: Vaginal Bleeding Stated Complaint: ABDOMINAL PAIN/VAGINAL BLEEDING Time Seen by Provider: 11/29/19 11:57 Mode of Arrival: Ambulatory Information source: [facility] Records Notes: Patient is a 34-year-old female returns to the emergency room with complaint of increasing vaginal bleeding and pelvic pain. Patient was seen here this past Monday was diagnosed with a had ultrasound done that showed although questionable threatened miscarriage. Patient also was diagnosed with bacterial vaginosis and placed on Flagyl. She states that on Monday or Monday she started passing some dark clots very small but today the pain increased and she is passing bright red blood. Physical examination: Patient is a well-nourished well-developed 34-year-old female no apparent distress on physical exam this afternoon however she does appear uncomfortable. Cardiac: Regular rate and rhythm no murmurs are noted. Lungs: Bilateral breath sounds increased clear to auscultation. Abdomen in a sitting position patient has some mild suprapubic tenderness to palpation. There are bowel sounds present in all 4 quads. Patient had extensive work-up done this past Monday and is back with recurrent and increasing intense pain in the pelvic area. Also increased amount of vaginal bleeding. Ultrasound to be repeated as well as serum quantitative to be done as well. I have greeted and performed a rapid initial assessment of this patient. A comprehensive ED assessment and evaluation of the patient, analysis of test results and completion of the medical decision making process will be conducted by additional ED providers. Dictation of this chart was performed using voice recognition software; therefore, there may be some unintended grammatical errors. TRAVEL OUTSIDE OF THE [place] IN LAST 30 DAYS: No - Related Data Allergies/Adverse Reactions: No Known Allergies Allergy (Verified 05/23/18 00:44) Past Medical History - Past Medical History Cardiac Medical History: Denies: Hx Coronary Artery Disease, Hx Heart Attack, Hx Hypertension Pulmonary Medical History: Reports: Hx Asthma - EXERCISED INDUCED, Hx Pneumonia Denies: Hx Bronchitis, Hx COPD, Hx Tuberculosis Neurological Medical History: Denies: Hx Cerebrovascular Accident, Hx Seizures Endocrine Medical History: Comment Only: Hx Diabetes Mellitus Type 1 - diet controlled Renal/ Medical History: Denies: Hx Peritoneal Dialysis Musculoskeltal Medical History: Denies Hx Arthritis Psychiatric Medical History: Reports: Hx Depression Past Surgical History: Reports: Hx Dilation and Curettage - Immunizations Immunizations up to date: Yes Hx Diphtheria, Pertussis, Tetanus Vaccination: Yes - given today Physical Exam - Vital signs Vitals: Temp Pulse Resp BP Pulse Ox 98.3 F 81 16 103/69 100 11/29/19 10:53 11/29/19 10:53 11/29/19 10:53 11/29/19 10:53 11/29/19 10:53 Course - Vital Signs Vital signs: Temp Pulse Resp BP Pulse Ox 98.3 F 81 16 103/69 100 11/29/19 10:53 11/29/19 10:53 11/29/19 10:53 11/29/19 10:53 11/29/19 10:53
[2019-11-29 12:34] LABS: APPEARANCE,URINE SLIGHTLY-CLOUDY; BILIRUBIN,URINE NEGATIVE (NEGATIVE); COLOR,URINE YELLOW; GLUCOSE, URINE NEGATIVE (NEGATIVE); KETONES,URINE NEGATIVE (NEGATIVE); LEUKOCYTE ESTERASE,URINE TRACE (NEGATIVE); NITRITE,URINE NEGATIVE (NEGATIVE); PROTEIN,URINE 30 mg/dL (NEGATIVE); URINE SPECIFIC GRAVITY 1.018; UROBILINOGEN,URINE NEGATIVE mg/dL (<2.0)
[2019-11-29 12:44] LABS: ABSOLUTE LYMPHOCYTES (AUTO) 1.7 10^3/uL (0.5-4.7); ABSOLUTE MONOCYTES (AUTO) 0.6 10^3/uL (0.1-1.4); ABSOLUTE NEUT (AUTO) 3.9 10^3/uL (1.7-8.2); BASOPHILS % (AUTO) 0.5 % (0-2); EOSINOPHILS % (AUTO) 0.6 % (0-6); HEMATOCRIT 34.2 % (36.0-47.0); HEMOGLOBIN 11.3 g/dL (12.0-15.5); LYMPHOCYTES % (AUTO) 27.1 % (13-45); MEAN CORPUSCULAR HEMOGLOBIN 26.6 pg (27.0-33.4); MEAN CORPUSCULAR VOLUME 81 fl (80-97); MONOCYTES % (AUTO) 9.7 % (3-13); PLATELET COUNT 217 10^3/uL (150-450); RED BLOOD COUNT 4.23 10^6/uL (3.72-5.28); RED CELL DISTRIBUTION WIDTH 16.4 % (11.5-14.0); SEGMENTED NEUTROPHILS % (AUTO) 62.1 % (42-78); TOTAL CELLS COUNTED % (AUTO) 100 %; WHITE BLOOD COUNT 6.2 10^3/uL (4.0-10.5)
[2019-11-29 13:05] LABS: ALBUMIN 4.2 g/dL (3.5-5.0); ALKALINE PHOSPHATASE 55 U/L (38-126); ASPARTATE AMINO TRANSFERASE 25 U/L (14-36); BILIRUBIN,TOTAL 0.4 mg/dL (0.2-1.3); BLOOD UREA NITROGEN 4 mg/dL (7-20); CALCIUM 9.2 mg/dL (8.4-10.2); CARBON DIOXIDE 28 mmol/L (22-30); CHLORIDE 105 mmol/L (98-107); GLUCOSE 89 mg/dL (75-110); POTASSIUM 3.8 mmol/L (3.6-5.0); TOTAL PROTEIN 7.4 g/dL (6.3-8.2)
[2019-11-29 13:49] LABS: ANION GAP 5 (5-19)
--- NOTE | 2019-11-29 16:15 | RADIOLOGY REPORT (SQ) ---
EXAM DESCRIPTION: U/S OB TRANSVAGINAL W/O DOP IMAGES COMPLETED DATE/TIME: 11/29/2019 3:02 pm REASON FOR STUDY: Increasing pelvic pain COMPARISON: 11/23/2019 TECHNIQUE: Transvaginal static and realtime grayscale images acquired of the pelvis. Additional alba cted spectral and color Doppler images recorded. All images stored on PACs. CLINICAL AGE: LMP 10/30/2019, JEANETTE 08/05/2020, EGA 4 weeks 2 days [facility], previously 1018 on exam dated 11/23/2019. LIMITATIONS: None. FINDINGS: UTERUS: Uterus measures 10.4 x 6.3 x 5.0 cm. Endometrial stripe measures 4 mm. Previousl y seen cystic region within the endometrial canal is no longer visualized. RIGHT ADNEXA: Normal ovary with normal vascular flow. Ovary measures 4.4 x 2.6 x 2.0 cm. Small cyst measuring 2.1 x 1.5 x 1.2 cm. No adnexal free fluid.No adnexal masses. LEFT ADNEXA: Normal ovary with normal vascular flow. Ovary measures 3.2 x 2.0 x 1.3 cm.No adnexal fr ee fluid.No adnexal masses. FREE FLUID: Small amount free fluid within the cul-de-sac. OTHER: No other significant finding. IMPRESSION: 1. No visualized intra or extrauterine . Previously seen cystic area within t he endometrial canal is no longer identified. Reported Beta Hcg too low to expect visualization of p regnancy. Findings concerning for but nondiagnostic of failed . Recommend continued serial beta HCG and follow-up ultrasound. 2. Trace fluid within the cul-de-sac. TECHNICAL DOCUMENTATION: JOB ID: [id number] 2010 [employer]- All Rights Reserved Reading location - IP/workstation name: [email or web address]
[2019-11-29 17:01] VITALS: BP 113/71
--- NOTE | 2019-11-29 17:17 | ER Document Report ---
ED GI/ - General Chief Complaint: Vaginal Bleeding Stated Complaint: ABDOMINAL PAIN/VAGINAL BLEEDING Time Seen by Provider: 11/29/19 11:57 Primary Care Provider: IRINEO CHASE MD [EMERITUS] - Follow up as needed Mode of Arrival: Ambulatory Information source: Patient Notes: Patient is a 34-year-old female returns to the emergency room with continuing complaint of increased pelvic pain discomfort with vaginal bleeding. Patient was here this past Monday worked up extensively with an ultrasound that showed a few cells in the intrauterine area and a couple of cyst. She was informed that she may be having a threatened and was to follow-up with her [facility] which is [facility]. Patient has not gotten there yet but states that on Monday she started having a little bit of discomfort in her pelvic area Monday she passed a couple of dark small clots by Monday she was increasing amount of pain and today she had bright red blood per vagina. With increasing pain and back pain. Patient is here for reevaluation. Patient states that she was told her serum quantitative last time was around 1999 and was told that that is awful low is why they thought she might be having a threatened miscarriage. Patient has extensive past medical history and that over 6 months ago she had a miscarriage where she did not have complete evacuation of the fetus and had retained products of conception and states that she was septic in another town. She ended up getting transfused there. That is why she is here today because she is concerned that the same thing may happen again. Patient was also being treated for bacterial vaginosis from her last visit. Patient does smoke. TRAVEL OUTSIDE OF THE [place] IN LAST 30 DAYS: No - HPI Patient complains to provider of: Pelvic pain, , Vaginal bleeding Onset: This morning Timing/Duration: Gradual, Persistent, Worse Quality of pain: Achy, Cramping, Sharp Severity at maximum: Moderate Severity in ED: Moderate Pain Level: 4 Location: Pelvis, Vaginal Vaginal bleeding (Compared to normal period): Spotting, Bright red, Passing clots Menstrual period history: Abnormal Associated symptoms: Radiates to back Exacerbated by: Denies Relieved by: Denies Similar symptoms previously: Yes Recently seen / treated by doctor: Yes - Related Data Allergies/Adverse Reactions: No Known Allergies Allergy (Verified 05/23/18 00:44) Past Medical History - General Information source: Patient, [facility] Records - Social History Smoking Status: Current Every Day Smoker Cigarette use (# per day): Yes Chew tobacco use (# tins/day): No Smoking Education Provided: Yes Frequency of alcohol use: None Drug Abuse: None Lives with: Family Family History: Reviewed & Not Pertinent Patient has homicidal ideation: No - Past Medical History Cardiac Medical History: Denies: Hx Coronary Artery Disease, Hx Heart Attack, Hx Hypertension Pulmonary Medical History: Reports: Hx Asthma - EXERCISED INDUCED, Hx Pneumonia Denies: Hx Bronchitis, Hx COPD, Hx Tuberculosis Neurological Medical History: Denies: Hx Cerebrovascular Accident, Hx Seizures Endocrine Medical History: Comment Only: Hx Diabetes Mellitus Type 1 - diet controlled Renal/ Medical History: Denies: Hx Peritoneal Dialysis Musculoskeletal Medical History: Denies Hx Arthritis Psychiatric Medical History: Reports: Hx Depression Past Surgical History: Reports: Hx Dilation and Curettage, Hx Gynecologic Surgery - d and c - Immunizations Immunizations up to date: Yes Hx Diphtheria, Pertussis, Tetanus Vaccination: Yes - given today Review of Systems - Review of Systems Constitutional: No symptoms reported EENT: No symptoms reported Cardiovascular: No symptoms reported Respiratory: No symptoms reported Gastrointestinal: No symptoms reported Genitourinary: No symptoms reported Female Genitourinary: See HPI, , Vaginal bleeding Musculoskeletal: No symptoms reported Skin: No symptoms reported Hematologic/Lymphatic: No symptoms reported Neurological/Psychological: No symptoms reported -: Yes All other systems reviewed and negative Physical Exam - Vital signs Vitals: Temp Pulse Resp BP Pulse Ox 98.3 F 81 16 103/69 100 11/29/19 10:53 11/29/19 10:53 11/29/19 10:53 11/29/19 10:53 11/29/19 10:53 Interpretation: Hypotensive - Notes Notes: PHYSICAL EXAMINATION: GENERAL: Patient is a well-nourished well-developed 34-year-old female no apparent distress but does appear somewhat uncomfortable. HEAD: Atraumatic, normocephalic. EYES: Pupils equal round and reactive to light, extraocular movements intact, conjunctiva are normal. ENT: Nares patent, oropharynx clear without exudates. Moist mucous membranes. NECK: Normal range of motion, supple without lymphadenopathy LUNGS: Breath sounds clear to auscultation bilaterally and equal. No wheezes rales or rhonchi. HEART: Regular rate and rhythm without murmurs ABDOMEN: Soft, nontender, nondistended abdomen. No guarding, no rebound. No masses appreciated. Palpation shows that patient does have some suprapubic tenderness to palpation. Slight adnexal tenderness to palpation as well. Female : deferred patient requested not to have a pelvic exam. NEUROLOGICAL: Normal speech, normal gait. Normal sensory, motor exams PSYCH: Normal mood, normal affect. SKIN: Warm, Dry, normal turgor, no rashes or lesions noted. Course - Re-evaluation Re-evalutation: 11/29/19 21:34 Patient's transvaginal ultrasound came back and showed that there was nothing contained within the uterus. Also showed that her blood work had a serum quantitative of 150 down from over thousand on this past Monday. Given the patient has passed clots and is having some mild bleeding I have informed her that she is most likely completing a miscarriage. She is to contact the women's group [facility] for follow-up on Monday. - Vital Signs Vital signs: Temp Pulse Resp BP Pulse Ox 98.3 F 77 16 113/71 99 11/29/19 17:00 11/29/19 17:00 11/29/19 17:00 11/29/19 17:00 11/29/19 17:00 - Laboratory Result Diagrams: 11/29/19 12:31 11/29/19 12:31 Laboratory results interpreted by me: 11/29/19 11/29/19 11/29/19 12:07 12:31 12:31 Hgb 11.3 L Hct 34.2 L MCH 26.6 L RDW 16.4 H BUN 4 L Beta HCG, Quant 105.19 H Urine Protein 30 H Urine Blood LARGE H Ur Leukocyte Esterase TRACE H Discharge - Discharge Clinical Impression: Threatened miscarriage Pelvic pain affecting Qualifiers: Trimester: first trimester Qualified Code(s): O26.891 - Other specified related conditions, first trimester Condition: Stable Disposition: HOME, SELF-CARE Instructions: Bleeding During Early ([facility]), Threatened Miscarriage ([facility]) Additional Instructions: As we discussed your labs and ultrasound are reviewed in the direction that you are having a threatened miscarriage. Currently they see no signs of an intrauterine . The 2 cyst that were on your ovaries at the time have ruptured and therefore may be what is also causing the pain and discomfort. Given your history I highly recommend still you follow-up with the [facility]TE[facility]NIC[facility] group that you are familiar with and this year local. Given the discomfort and pain is you are having I will write you for some Tylenol 3 and some Zofran. If you should start bleeding heavily and continuously return to ER for reevaluation. Prescriptions: Acetaminophen with Codeine [Tylenol #3 Tablet] 1 each PO Q4HP PRN #12 tablet PRN Reason: Ondansetron [Zofran Odt 4 mg Tablet] 1 - 2 tab PO Q4HP PRN #10 tab.rapdis PRN Reason: Forms: Smoking Cessation Education Referrals: IRINEO CHASE MD [EMERITUS] - Follow up as needed
== END 2019-11-29 17:20 | disposition home or self-care (01) ==
LOC: ER 10:41
DX: O20.0 Threatened abortion (principal); O26.891 Other specified pregnancy related conditions, first trimester; R10.9 Unspecified abdominal pain; R10.2 Pelvic and perineal pain; O99.331 Smoking (tobacco) complicating pregnancy, first trimester; M54.9 Dorsalgia, unspecified; O99.511 Diseases of the respiratory system complicating pregnancy, first trimester; J45.909 Unspecified asthma, uncomplicated; O24.011 Pre-existing type 1 diabetes mellitus, in pregnancy, first trimester; E10.9 Type 1 diabetes mellitus without complications; Z3A.00 Weeks of gestation of pregnancy not specified
CPT/HCPCS: 36415; 76817; 80053; 81001; 84702; 85025; 99284